=== PATIENT | female | born 2005 | race Caucasian/White ===

== ENCOUNTER 2024-08-06 14:22 | Emergency (ER) | payer OTHER, SELFPAY ==
[2024-08-06 14:25] VITALS: BP 144/93; PULSE 85; RESP 18; TEMP 36.9; O2SAT 100; BMI 26.7
--- NOTE | 2024-08-06 14:42 | ED_ITS ---
HPI - General Adult General Chief complaint: Recheck/Abnormal Lab/Rx Stated complaint: staple removal Time Seen by Provider: 08/06/24 14:40 Source: patient and family (mom) Mode of arrival: ambulatory Limitations: no limitations History of Present Illness ED Provider: CORBY HESTER PA-C HPI narrative: 18-year-old female presents to the ED today with her mother requesting removal of mat. Patient states that she was evaluated at [facility] just outside of [place] approximately 9 days ago for self-harm lacerations to her anterior right thigh. She had mat placed to 3 of these lacerations. She was not started on any antibiotics. She was advised to return to an emergency department for removal in 7-10 days. She admits to removing mat from 1 of the sites yesterday as they were irritating her. She has been applying Neosporin. Reports minimal redness around the staple sites. Unsure if this is just irritation. There is some crusting noted around laceration. Denies fever, chills. Related Data Previous Rx's ?Medication ?Instructions ?Recorded doxycycline monohydrate 100 mg 100 mg PO BID 7 days #14 caps 08/06/24 capsule Allergies Allergy/AdvReac Type Severity Reaction Status Date / Time No Known Allergies Allergy Verified 08/06/24 14:27 Review of Systems 2 Review of Systems: Yes all other systems are reviewed and are negative PMFSH Past Medical History Attestation statement: The following information was validated with the patient. Source: old records reviewed and nursing notes reviewed Social History Social History Advance Directives: Yes Advance Directives Information Provided: Yes Advance Directives on File: No Do you have a plan to hurt others: No Plan Physical Exam ED Vital Signs: Vital Signs - 24 hr 08/06/24 14:25 Temperature 98.5 F Pulse Rate 85 Respiratory Rate 18 Blood Pressure 144/93 H Pulse Oximetry 100 Oxygen Delivery Method Room Air BMI result Body Mass Index 26.7 hypertensive, afebrile General: Well appearing, in no acute distress. Skin: +See below Head: Normocephalic, atraumatic. EENT: Hearing is intact b/l. Conjunctiva clear. EOM intact. Neck: Supple without LAD Cardiac: Chest wall symmetric Lungs: Normal respiratory effort without accessory muscle use Ext: +see below. 11 cm linear laceration noted to lateral right thigh with [address]. Mild erythema at staple sites. Noted crusting to laceration. no evidence of dehiscence. another 5 cm linear laceration noted distal lateral right thigh with [address] mild erythema noted to staple sites. another 5 cm linear laceration, mat previously removed. no noted discharge. no warmth. No palpable fluctuance. Neuro: AOx3. Normal speech. Ambulating with steady gait. Psych: Appropriate mood and affect. Responds appropriately to questions. Course Course Course Narrative: A total of 16 mat removed from to lacerations. Lacerations appear to be irritated around staple sites. There is noted crusting to both lacerations. Will start patient on doxycycline for coverage. Patient is agreeable. I have no concern for abscess or dehiscence at this time. Her vitals are stable and she was afebrile. Well-appearing. Patient has remained stable throughout ED visit today. Discussed worrisome signs and symptoms and when to return to the ED. All questions answered at this time. Patient is agreeable with disposition and stable for discharge. Medical Decision Making Medical Decision Making MDM Narrative: 18-year-old female presents to the ED today with her mother requesting removal of mat. hypertensive, vitals are otherwise wnl. Please see exam portion for findings. Differential diagnosis includes self-harm, laceration, cellulitis, dehiscence Plan for staple removal and disposition. Differential Diagnosis Differential Diagnoses: The differential diagnosis associated with the presentation includes as above Admission/Observation not indicated Independent Historian Clinical information obtained from an independent historian. History obtained from or confirmed by: Parent Prescription Management I considered prescription management with: Antibiotic (doxycycline) Social Determinants Patient?s care significantly limited by Social Determinants of Health including: Other Social Determinant of Health Critical Care Time Critical Care Time Critical Care Time: No Discharge Plan Discharge Clinical Impression: Removal of mat, Cellulitis Patient Disposition: Home, Self-Care Instructions: Doxycycline (By mouth) Additional Instructions: You have been evaluated in the Emergency Department today for staple removal. Your mat were removed. Your laceration sites appear irritate and mildly infected. I am starting you on an oral antibiotic, doxycycline. Take this as prescribed for the next 7 days to prevent any further infection. On doxycycline, do not take pills immediately before going to bed and swallow pills with plenty of water. Avoid direct sunlight, iron, antacids, and Pepto Bismol. Call your provider if you develop new ringing in your ears, new problems hearing, dizziness, difficulty swallowing, rash, abdominal discomfort, nausea, or diarrhea. You can wash the area freely now. Pat to dry. Keep your wound out of the sunlight for six months to reduce the appearance of scarring. You should cover your scar or use high SPF sunscreen protection. Please follow up with your primary care provider at your next scheduled appointment. Return to the ER immediately signs of infection to your wounds such as worsening pain, worsening redness/swelling, discharge/pus from your wounds, or for any other concerning symptoms. Prescriptions: New doxycycline monohydrate 100 mg capsule 100 mg PO BID 7 Days Qty: 14 0RF Referrals: Physician,Unknown J [Primary Care Provider] - Discharge Date/Time: 08/06/24 15:01 Print Language: Armenian
--- OUTSIDE RECORDS SUMMARY | 2024-08-06 14:59 | XMS_ITS | Patient Health Record ---
Author Organization [facility], Address [address] [address] Care Team Providers Care Aadc Plans Staff Officer Name Role Phone Manju PINA, Agnes Primary Care Provider WES Nair Unavailable [phone] Reason For Referral No Information Social History Sex Assigned At : Social History Observation Description Sex Assigned At Female Problems Problem Type SNOMED Code ICD Code Onset Dates Problem Status W/U Status Risk Notes Problem 999633910 Anxiety disorder , unspecified (F41.9) Active confirmed Problem Allergic rhinitis caused by pollen (disorder) (95234682) Allergic rhinitis due to pollen (J30.1) Active confirmed Problem Seasonal allergic rhinitis (059066561) Other seasonal allergic rhinitis (J30.2) Active confirmed Problem Allergic contact dermatitis caused by chemical (081510701528939 03) Allergic contact dermatitis due to other chemical products (L23.5) Active confirmed Problem Anaphylactic reaction to food (63205647) Anaphylactic reaction due to fruits and vegetables, initial encounter (T78.04XA) Active confirmed Problem Food anaphylaxis (37260278) Anaphylactic reaction due to fruits and vegetables, subsequent encounter (T78.04XD) Active confirmed Problem Food anaphylaxis (13198486) Anaphylactic reaction due to other food products, initial encounter (T78.09XA) Active confirmed Problem Food anaphylaxis (83039577) Anaphylactic reaction due to other food products, subsequent encounter (T78.09XD) Active confirmed Problem Angioneurotic edema (16278988) Angioneurotic edema, initial encounter (T78.3XXA) Active confirmed Problem Angioneurotic edema (58580869) Angioneurotic edema, subsequent encounter (T78.3XXD) Active confirmed Problem 68204695 Adverse effect o f other drugs, medicaments and biological substances, initial encounter (T50.991Z) Active confirmed Problem 00831499 Depression, unspecified (F32.A) Active confirmed Problem 078632223 Autism (F84.0) Active confirmed Problem 407475124 Attention defici t hyperactivity disorder (ADHD), other type (F90.8) Active confirmed Problem 46904728 Dysautonomia (G90.1) Active confirmed Problem 382760852 H/O knee surgery (Z98.890) Active confirmed Problem 07558565 Hyperthyroidism (E05.90) Active confirmed Plan Of Treatment No Information Insurance Providers Payer Name Payer Address Payer Phone Subscriber Number Group Number Insured Name Patient Relationship to Insured Coverage Start Date Coverage End Date [facility] [address] [address] [place] [phone] [id number] Marie Goodman Self - patient is the insured
--- OUTSIDE RECORDS SUMMARY | 2024-08-06 14:59 | XMS_ITS | Encounter Summary ---
Author Organization [facility] Address [address] [id number] Care Team Providers Care Vice President Of Consulting Services Name Role Phone Agnes Montgomery MD Primary Care Provider [phone] Agnes Montgomery MD Unavailable [phone] Agnes Montgomery MD Primary Care Provider [phone] Encounter Details Date Type Department Care Team (Latest Contact Info) Description 02/13/2022 Lab [facility] Ordering Brianda Torres NP [address] [facility] [address] [place] [address] Dysuria Social History Tobacco Use Types Packs/Day Years Used Date Smoking Tobacco: Never Assessed Comments Unknown Sex and Gender Information Value Date Recorded Sex Assigned at Female 06/08/2022 7:30 PM EST Legal Sex Female 12:12 PM EST Gender Identity Female 06/09/2022 4:30 PM EST Sexual Orientation Not on file documented as of this encounter Plan of Treatment Not on file documented as of this encounter Procedures Procedure Name Priority Date/Time Associated Diagnosis Comments CULTURE, AEROBIC, URINE Routine 02/13/2022 11:46 AM EDT Dysuria documented in this encounter Results * Culture, Aerobic, Urine (02/13/2022 11:46 AM EDT) Culture <10,000 CFU/ml mixed urogenital theo, probable contamination GAVIN 02/14/2022 3:44 PM EDT [facility] Urine MID-STREAM URINE SPECIMEN / Unknown Collection / Unknown 02/13/2022 11:46 AM EDT 02/13/2022 9:03 PM EDT Brinada Torres RELATIONS [facility] MICROBIOLOGY - GENERAL ORDERABLE S Final Result [facility] [address] [place] [address], documented in this encounter Visit Diagnoses Diagnosis Dysuria documented in this encounter Care Teams Vice President Of Consulting Services Relationship Specialty Start Date End Date Agnes Montgomery MD PCP - General Pediatric Medicine 03/13/21 07/28/24 Agnes Montgomery MD PCP - Insurance Assigned PCP 02/13/22 Agnes Montgomery MD [address] [place] [address] PCP - General Pediatric Medicine 07/29/24 documented as of this encounter
--- OUTSIDE RECORDS SUMMARY | 2024-08-06 14:59 | XMS_ITS | Encounter Summary ---
Author Organization [facility] Address [address] [place] [address] Phone Care Team Providers Care Tug Boat Captain Name Role Phone Agnes Montgomery MD Primary Care Provider Agnes Montgomery MD Unavailable [phone] Agnes Montgomery MD Unavailable [phone] Agnes Montgomery MD Unavailable [phone] Jennifer Hill MD Unavailable [phone] Yesy Rahman MD Unavailable [phone] Encounter Details Date Type Department Care Team (Late st Contact Info) Description 02/03/2024 Orders Only [facility] [address] [place] [address] Justin Dennis, ART GLASS SETTER [address] [place] [address] Elevated blood pressure reading without diagnosis of hypertension (Primary Dx) Social History Tobacco Use Types Packs/Day Years Used Date Smoking Tobacco: Unknown Passive Smoke Exposure: Never Comments Unknown Sex and Gender Information Value Date Recorded Sex Assigned at Female 11/18/2023 2:52 PM EDT Legal Sex Female 12:58 AM EDT Gender Identity Not on file Sexual Orientation Not on file documented as of this encounter Plan of Treatment Upcoming Encounters Date Type Department Care Team (Late st Contact Info) Description 08/13/2024 3:00 PM EDT Appointment [facility] [address] [place] [phone] 08/25/2024 5:00 PM EDT Appointment [facility] [address] [place] [phone] Milind Ac MD [address] [place] [address] 09/09/2024 3:00 PM EDT [facility] [address] [place] [phone] Juan Barreto MD [address] [place] [phone] 05/24/2025 8:00 AM EST Telemedicine [facility] Genetics Metabolism [address] [place] [phone] Kanwal Laguerre CNP [address] [place] [address] Scheduled Orders Name Type Priority Associated Diagnoses Orde r Schedule Urine Culture Microbiology Add-On Elevated blood pressure reading without diagnosis of hypertension Expected: 02/03/2024 (Approximate), Expires: 02/02/2025 documented as of this encounter Visit Diagnoses Diagnosis Elevated blood pressure reading without diagnosis of hypertension- Primary documented in this encounter Care Teams Tug Boat Captain Relationship Specialty Start Date End Date Agnes Montgomery MD [address] [place] [address] PCP - General 08/27/23 Agnes Montgomery MD [address] [place] [address] PCP - Insurance Identified PCP 09/05/23 Agnes Montgomery MD [address] [place] [id number] PCP - Insurance PCP 08/21/17 Agnes Montgomery MD [address] [place] [id number] PCP - Clinical PCP 01/08/17 Jennifer Hill MD [address] [place] [address] HC Internal Audit Director 09/20/23 05/06/24 Yesy Rahman MD [address] [place] [phone] Consulting Physician Pediatric Cardiology 05/07/24 documented as of this encounter
--- OUTSIDE RECORDS SUMMARY | 2024-08-06 14:59 | XMS_ITS | Encounter Summary ---
Author Organization [facility] Address [address] [facility] [address] [place] [phone] Phone Care Team Providers Care Field Sampling Technician Name Role Phone Agnes Montgomery MD Primary Care Provi chelsey Encounter Details Date Type Department Care Team (Late st Contact Info) Description 12/11/2021 Procedure Pass [facility] [address] ENDO DEPT [address] [place] [address] Social History Tobacco Use Types Packs/Day Years Used Date Smoking Tobacco: Never Smokeless Tobacco: Never Alcohol Use Standard Drinks/Week Comments Never 0 (1 standard drink = 0.6 oz pur e alcohol) Sex and Gender Information Value Date Recorded Sex Assigned at Female 04/16/2021 2:14 PM EST Gender Identity Non-binary 04/16/2021 2:14 PM EST Sexual Orientation Lesbian or [place] 04/16/2021 2: 14 PM EST documented as of this encounter Plan of Treatment Upcoming Encounters Date Type Department Care Team (Late st Contact Info) Description 09/09/2024 1:00 PM EDT Office Visit [facility] [address] [place] [address] Sheila Arana, JULIA [address] [place] [address] 09/27/2024 8:30 AM EDT Office Visit [facility] [address] [place] [address] Letha Livingston MD [address] [place] [address] [email or web address] 04/11/2025 1:15 PM EST Office Visit [facility] [place] [address] [place] [address] Cass Alberts OD [address] [place] [address] documented as of this encounter Visit Diagnoses Not on filedocumented in this encounter Care Teams Field Sampling Technician Relationship Specialty Start Date End Date Agnes Montgomery MD [address] [facility] [address] [place] [address] PCP - General Pediatrics 12/31/16 documented as of this encounter Additional Source Comments The information contained in this document represents components of the legal health record. It is not the complete legal health record.[facility]
--- OUTSIDE RECORDS SUMMARY | 2024-08-06 14:59 | XMS_ITS | Clinical Summary ---
Author Organization [facility] Address [address] [place] [address] Care Team Providers Care Hand Grinder Name Role Phone Agnes Montgomery MD Unavailable [phone] Agnes Montgomery MD Primary Care Provider [phone] Allergies Active Allergy Reactions Criticality Noted Date Comments Hydromorphone Anxiety Low 06/08/2022 Oxycodone Rash Low 06/08/2022 Scopolamine Unknown 06/08/2022 Blurry vision Medications No known medications Active Problems Problem Noted Date Diagnosed Date Paresthesias 06/10/2022 Encounters Date Type Department Care Team Description 07/29/2024 12:59 AM EDT - 07/29/2024 6:23 AM EDT Emergency [facility] [address] [place] [phone] lEy Mancilla MD Deliberate self-cutting (Primary Dx); Laceration of right thigh, initial encounter Discharge Disposition: Home or Self Care from Last 3 Months Social History Tobacco Use Types Packs/Day Years Used Date Smoking Tobacco: Never Assessed Comments No Sex and Gender Information Value Date Recorded Sex Assigned at Female 06/08/2022 7:30 PM EST Legal Sex Female 12:12 PM EST Gender Identity Female 06/09/2022 4:30 PM EST Sexual Orientation Not on file Last Filed Vital Signs Vital Sign Reading Time Taken Comments Blood Pressure 137/70 07/29/2024 6:21 AM EDT Pulse 86 07/29/2024 6:21 AM EDT Temperature 36.7 ??C (98 ??F) 07/29/2024 6:21 AM EDT Respiratory Rate 16 07/29/2024 6:21 AM EDT Oxygen Saturation 98% 07/29/2024 6:21 AM EDT Inhaled Oxygen Concentration - - Weight 65.8 kg (145 lb) 07/29/2024 12:47 AM EDT Height 160 cm (5' 3 ) 07/29/2024 12:47 AM EDT Body Mass Index 25.69 07/29/2024 12:47 AM EDT Plan of Treatment Health Maintenance Due Date Last Done Comments Depression Screening 2008 Chlamydia and Gonorrhea Screening 09/03/2019 Hepatitis C Screening 2022 COVID-19 Vaccine ( season) 2023 04/18/2021, 09/25/2020, 09/04/2020 Influenza Vaccine (Season Ended) 2024 02/13/2022, 12/30/2019, 01/12/2019, Additional history exists Blood Pressure 07/29/2028 07/29/2024 DTaP,Tdap,and Td Vaccines (7 - Td or Tdap) 10/25/2033 10/26/2023, 11/02/2015, 08/24/2008, Additional history exists Pneumococcal Vaccine: Pediatrics (0 to 5 Years) and At-Risk Patients (6 to 64 Years) Aged Out 09/06/2005, 03/05/2005, 01/03/2005, Additional history exists No longer eligible based on patient's age to complete this topic Meningococcal Vaccines Completed , 08/29/2017, 11/02/2015 Procedures Procedure Name Priority Date/Time Associated Diagnosis Comments [place] SIMPLE RPR SCALP/NECK/AX/GENIT/T RUNK 7.6-12.5CM Routine 07/29/2024 6:10 AM EDT CBC AND DIFFERENTIAL STAT 07/29/2024 1:08 AM EDT CBC AND DIFFERENTIAL STAT 07/29/2024 1:08 AM EDT , URINE STAT 07/29/2024 1:08 AM EDT TOXICOLOGY SCREEN, BLOOD STAT 07/29/2024 1:08 AM EDT DRUG SCREEN, URINE STAT 07/29/2024 1: 08 AM EDT BASIC METABOLIC PANEL STAT 07/29/2024 1:08 AM EDT from Last 3 Months Results * [place] SIMPLE RPR SCALP/NECK/AX/GENIT/TRUNK 7.6-12.5CM (07/29/2024 6:10 AM EDT) Narrative Ely Mancilla MD - 07/29/2024 6:10 AM EDT Ely Mancilla MD ? 07/29/2024 ??6:13 AM Lac Repair Date/Time: 07/29/2024 6:10 AM Performed by: Ely Mancilla MD Authorized by: Ely Mancilla MD ?? Consent: ??Consent obtained: ??Verbal ??Consent given by: ??Patient Indications: ??laceration Anesthesia: ??Anesthesia method: ??Topical application and local infiltration ??Topical anesthetic: ??LET ??Local anesthetic: ??Lidocaine 1% WITH epi Laceration details: ??Location: ??Leg ??Leg location: ??R upper leg ??Length (cm): ??12 Pre-procedure details: ??Preparation: ??Patient was prepped and draped in usual sterile fashion Exploration: ??Wound exploration: entire depth of wound visualized ?Contaminated: no ?? Treatment: ??Area cleansed with: ??Saline ??Amount of cleaning: ??Standard ??Irrigation solution: ??Sterile saline ??Debridement: ??None ??Undermining: ??None ??Scar revision: no ?? Skin repair: ??Repair method: ??[place] ??Number of mat: ??10 (and 5 and 5 in 2 smaller lacerations) Approximation: ??Approximation: ??Close Repair type: ??Repair type: ??Simple Post-procedure details: ??Dressing: ??Antibiotic ointment ??Assessment: improvement ??Procedure completion: ??Tolerated well, no immediate complications us Ely Mancilla MD PROCEDURE/MINOR SURGICAL ORDER ERVIN Final Result * (ABNORMAL) CBC and Differential (07/29/2024 1:08 AM EDT) [facility] WBC 12.52(H) 4.00 - 11.00 K/uL 07/29/2024 1:34 AM [facility] RBC 5.12(H) 4.10 - 5.10 M/uL 07/29/2024 1:34 AM [facility] Hemoglobin 14.0 12.0 - 15.3 g/dL 07/29/2024 1:34 AM [facility] Hematocrit 42.6 36.0 - 45.0 % 07/29/2024 1:34 AM [facility] MCV 83 80 - 96 fL 07/29/2024 1:34 AM [facility] RDW 13.7 11.6 - 14.6 % 07/29/2024 1:34 AM [facility] Platelet Count 435 150 - 450 K/uL 07/29/2024 1:34 AM [facility] Neutrophil 54.9 % 07/29/2024 1:34 AM [facility] Lymphocyte 35.1 % 07/29/2024 1:34 AM [facility] Monocyte 6.9 % 07/29/2024 1:34 AM [facility] Eosinophil 2.1 % 07/29/2024 1:34 AM [facility] Basophil 0.7 % 07/29/2024 1:34 AM [facility] Immature Granulocyte (Charlotte, Myelo, Promyelocyte) 0.3 % 07/29/2024 1:34 AM [facility] Absolute Neutrophil Count 6.87 1.50 - 7.70 K/uL 07/29/2024 1:34 AM [facility] Absolute Immature Granulocyte (Charlotte, Myelo, Promyelocyte) 0.04 0.00 - 0.09 K/uL 07/29/2024 1:34 AM [facility] Absolute Lymphocyte Count 4.40(H) 1.20 - 3.50 K/uL 07/29/2024 1:34 AM [facility] Absolute Monocyte Count 0.86 0.00 - 1.00 K/uL 07/29/2024 1:34 AM [facility] Absolute Eosinophil Count 0.26 0.00 - 0.40 K/uL 07/29/2024 1:34 AM EDT [facility] Absolute Basophil Count 0.09 0.00 - 0.20 K/uL 07/29/2024 1:34 AM EDT [facility] Differential Performed Auto Diff Reported 07/29/2024 1:34 AM EDT [facility] Blood PERIPHERAL BLOOD SPECIMEN / Unknown 07/29/2024 1:08 AM EDT 07/29/2024 1:25 AM EDT Ely Mancilla MD LAB BLOOD ORDERABLES Final Res ult [address] [address] * Plasma Toxicology Screen (07/29/2024 1:08 AM EDT) Pathologist [facility] Alcohol <10 <10 mg/dL 07/29/2024 2:08 AM EDT [facility] Acetaminophen Result,Blood 4 <=30 ug/mL 07/29/2024 2:08 AM EDT [facility] Salicylate Level, Blood <5 <30 mg/dL 07/29/2024 2:08 AM EDT [facility] Benzodiazepines Screen,Blood Negative Negative 07/29/2024 2:08 AM EDT [facility] Comment: Benzodiazepines cutoff is 50 ng/mL diazepam. Results should be used for medical purposes only and not for any legal or employment evaluative purposes. Tricyclics Screen Negative Negative 2:08 AM EDT [facility] Comment: Tyicyclics cutoff is 300 ng/mL Nortriptyline. Results should be used for medical purposes only and not for any legal or employment evaluative purposes. Blood PERIPHERAL BLOOD SPECIMEN / Unknown 07/29/2024 1:08 AM EDT 07/29/2024 1:25 AM EDT Ely Mancilla MD LAB BLOOD ORDERABLES Final Res ult Performing Organization Address City/[facility]/ZIP Co de Phone Number [address] [address] * Drug Screen, Urine (07/29/2024 1:08 AM EDT) 6-Aceytlmorphine Screen, Urine Negative Negative 07/29/2024 3:17 AM [facility] Comment:Add on order [id number] Opiates and Oxycodone, Urine, Confirmation, if confirmation desired. Amphetamines Screen, Urine Negative Negative 07/29/2024 3:17 AM [facility] Comment: Screen for Amphetamine, Metamphetamine or other Amphetamine-like compounds. Add-on order [id number] Amphetamine, Urine, Confirmation if confirmation desired. Barbiturates Screen, Urine Negative Negative 07/29/2024 3:17 AM T [facility] Comment:Add-on order [id number] Barbiturate, Urine, Confirmation if confirmation desired. Benzodiazepine Screen, Urine Negative Negative 07/29/2024 3:17 AM [facility] Comment: Add-on order [id number] Benzodiazepine, Urine, Confirmation if confirmation desired. Buprenorphine Screen, Urine Negative Negative 07/29/2024 3:17 AM [facility] Comment:Add-on order [id number] Buprenorphine, Urine, Confirmation if confirmation desired. Cannabinoids Screen, Urine Negative Negative 07/29/2024 3:17 AM [facility] Comment:Add-on order [id number] Cannabinoids, Urine, if confirmation desired. Cocaine Metabolite Screen, Urine Negative Negative 07/29/2024 3:17 AM [facility] Comment:Add-on order [id number] Cocaine, Urine, Confirmation if confirmation desired. Ethanol Screen, Urine Negative Negative 07/29/2024 3:17 AM [facility] Fentanyl Screen, Urine Negative Negative 07/29/2024 3:17 AM [facility] Comment:Add-on order [id number] Fentanyl Confirmation, Urine, if confirmation desired. Methadone Screen, Urine Negative Negative 07/29/2024 3:17 AM [facility] Comment:Add order [id number] Me thadone, Urine, Confirmation if confirmation desired. Opiates Screen, Urine Negative Negative 07/29/2024 3:17 AM [facility] Comment: Screen for Morphine, Codeine, Hyrdocodone, Hydromorphone, or other Morphine- related opiates. Add on order [id number] Opiates and Oxycodone, Urine, Confirmation if confirmation desired. Oxycodone Screen, Urine Negative Negative 07/29/2024 3:17 AM EDT [facility] Comment:Add-on order [id number] Opiates and Oxycodone, Urine, Confirmation if confirmation desired. Tramadol Screen, Urine Negative Negative 07/29/2024 3:17 AM EDT [facility] Comment:Add-on order [id number] Tramadol Confirmation, Urine, if confirmation desired. Creatinine, Jalen Urine 480.4 >=15 mg/dL 07/29/2024 3:17 AM T [facility] Urine URINE SPECIMEN / Unknown 07/29/2024 1:08 AM EDT 07/29/2024 1:26 AM EDT Narrative [facility] - 07/29/2024 3:17 AM EDT These tests are for screening purposes only and should only be used for medical purposes. ??The cutoff concentrations for determining a positive result are as follows: 6-Acetylmorphine ?10 ng/mL 6-acetylmorphine Amphetamines ?1000 ng/mL d-methamphetamine Barbiturates ? 200 ng/mL secobarbital Benzodiazepines ?200 ng/mL oxazepam Buprenorphine ?5 ng/mL buprenorphine Cannabinoids ?50 ng/mL 95-ams-emqbm 5-EIK-2-carboxylic acid Cocaine ?300 ng/mL benzoylecgonine Ethanol ? 20 mg/dL ethanol Fentanyl ? 1 ng/mL fentanyl Methadone ?300 ng/mL methadone Opiates ?300 ng/mL morphine Oxycodone ?100 ng/mL oxycodone Tramadol ? 200 ng/mL tramadol False negative and false positive results may occur due to cross-reactivity, patient medications or sample adulteration. ??If the validity of these results is uncertain, confirmatory testing can be done upon specific request. us Ely Mancilla MD URINE ORDERABLES Final Result [address] [address] * (HCG), Urine (07/29/2024 1:08 AM EDT) Pathologist [facility] HCG, Urine Random Negative Negative 07/29/2024 1:34 AM EDT [facility] Urine URINE SPECIMEN / Unknown 07/29/2024 1:08 AM EDT 07/29/2024 1:26 AM EDT us Ely Mancilla MD URINE ORDERABLES Final Result Performing Organization Address City/State/[facility] Co de Phone Number [address] [address] * (ABNORMAL) Basic Metabolic Panel (07/29/2024 1:08 AM EDT) [facility] Sodium 138 135 - 146 mmol/L [address] 07/29/2024 2:00 AM [facility] Potassium 3.5 3.4 - 5.2 mmol/L [address] 07/29/2024 2:00 AM [facility] Comment:Plasma sample Chloride 107 98 - 110 mmol/L [address] 07/29/2024 2:00 AM [facility] Total CO2/Bicarbonate 16(L) 24 - 32 mmol/L [address] 07/29/2024 2:00 AM [facility] Anion Gap 15 2 - 15 mmol/L [address] 07/29/2024 2:00 AM [facility] BUN 9 7 - 24 mg/dL [address] 07/29/2024 2:00 AM [facility] Creatinine, Blood 0.83 0.50 - 1.10 mg/dL [address] 07/29/2024 2:00 AM [facility] Glucose, Blood 109 70 - 118 mg/dL [address] 07/29/2024 2:00 AM [facility] Calcium 9.5 8.5 - 10.5 mg/dL [address] 07/29/2024 2:00 AM [facility] Estimated GFR(CKD-EPI) 102 >=60 mL/min/BS A REDDY [id number] 07/29/2024 2:00 AM EDT [facility] Comment:This Cr-based equati on underestimates GFR in patients with increased muscle mass. Order CYSTATIN C WITH GFR ESTIMATE, [id number], if additional evaluation of renal function is needed. Blood PERIPHERAL BLOOD SPECIMEN / Unknown 07/29/2024 1:08 AM EDT 07/29/2024 1:25 AM EDT us Ely Mancilla MD LAB BLOOD ORDERABLES Final Res ult [facility] [address] [place] [address] from Last 3 Months Insurance [employer] [facility] (O) Address: [facility] [address] [place] [address] Care Teams Hand Grinder Relationship Specialty Start Date End Date Agnes Montgomery MD PCP - Insurance Assigned PCP 02/13/22 Agnes Montgomery MD [address] [facility] [address] [place] [address] PCP - General Pediatric Medicine 07/29/24
--- OUTSIDE RECORDS SUMMARY | 2024-08-06 14:59 | XMS_ITS | Encounter Summary ---
Author Organization [facility] Address [address] [place] [address] Phone Care Team Providers Care Sat Tutor Name Role Phone Agnes Montgomery MD Primary Care Provider [phone] Agnes Montgomery MD Unavailable [phone] Agnes Montgomery MD Unavailable [phone] Agnes Montgomery MD Unavailable [phone] Yesy Rahman MD Unavailable [phone] Encounter Details Date Type Department Care Team (Late st Contact Info) Description 07/13/2024 Results Follow-Up [facility] [address] [place] [phone] Justin Dennis, SOLE BUFFER [address] [place] [address] Social History Tobacco Use Types Packs/Day Years [...] Encounters Date Type Department Care Team (Late Contact Info) Description 08/13/2024 3:00 PM EDT Appointment [facility] [address] [place] [phone] 08/25/2024 5:00 PM EDT Appointment [facility] [address] [place] [phone] Milind Ac MD [address] [place] [address] 09/09/2024 3:00 PM EDT Consult [facility] [address] [place] [phone] Juan Barreto MD [address] [place] [phone] 05/24/2025 8:00 AM EST Telemedicine [facility] [address] [place] [phone] Kanwal Laguerre CNP [address] [place] [phone] documented as of this encounter Visit Diagnoses Not on filedocumented in this encounter Care Teams Sat Tutor Relationship Specialty Start Date End Date Agnes Montgomery MD [address] [place] [address] PCP - General 08/27/23 Agnes Montgomery MD [address] [place] [address] PCP - Insurance Identified PCP 09/05/23 Agnes Montgomery MD [address] [place], [place] [id number] PCP - Insurance PCP 08/21/17 Agnes Montgomery MD [address] [place] [address] PCP - Clinical PCP 01/08/17 Yesy Rahman MD [address] [place] [address] Consulting Physician Pediatric Cardiology 05/07/24 documented as of this encounter
--- OUTSIDE RECORDS SUMMARY | 2024-08-06 14:59 | XMS_ITS | Encounter Summary ---
Author Organization [facility] Address [address] [facility] [address] [place] [phone] Phone Care Team Providers Care Blowing Weasand Name Role Phone Agnes [place] MD Primary Care Provi chelsey Reason for Referral * Consultation (Routine) - Closed Specialty Diagnoses / Procedures Referred By Seamus gu Referred To Contact Pediatric Rheumatology Diagnoses Arthralgia, unspecified joint Agnes Montgomery MD [address] [address] Samia Minaya MD [address] [place] [phone] Email: [email or web address] Referral ID Status Reason Start Date Expiration Date Visits Re quested Visits Authorized [id number] Closed 09/05/2017 04/20/2018 6 6 Encounter Details Date Type Department Care Team (Latest Contact Info) Description 08/25/2017 Transcribe Orders [facility] [address] [place] [address] Agnes Montgomery MD [address] [address] Arthralgia, unspecified joint (Primary Dx) Social History Tobacco Use Types Packs/Day Years Used Date Smoking Tobacco: Never Assessed Sex and Gender Information Value Date Recorded Sex Assigned at Female 04/16/2021 2:14 PM EST Gender Identity Non-binary 04/16/2021 2:14 PM EST Sexual Orientation Lesbian or [place] 04/16/2021 2: 14 PM EST documented as of this encounter Plan of Treatment Upcoming Encounters Date Type Department Care Team ([facility] st Contact Info) Description 09/09/2024 1:00 PM EDT Office Visit [facility] [address] [place] [address] Sheila Arana, OD [address] [place] [address] 09/27/2024 8:30 AM EDT Office Visit [facility] [address] [place] [address] Letha Livingston MD [address] [place] [address] [email or web address] 04/11/2025 1:15 PM EST Office Visit [facility] [address] [place] [address] Cass Alberts, OD [address] [place] [address] Scheduled Referrals Name Type Priority Associated Diagnoses Orde r Schedule Ambulatory referral to [facility] Pediatric Rheumatology Outpatient Referral Routine Arthralgia, unspecified joint Ordered: 08/25/2017 documented as of this encounter Visit Diagnoses Diagnosis Arthralgia, unspecified joint- Primary documented in this encounter Care Teams Blowing Weasand Relationship Specialty Start Date End Date Agnes Montgomery MD 57 [facility] [address] [place] [address] PCP - General Pediatrics 12/31/16 documented as of this encounter Additional Source Comments The information contained in this document represents components of the legal health record. It is not the complete legal health record.[facility]
--- OUTSIDE RECORDS SUMMARY | 2024-08-06 14:59 | XMS_ITS | Encounter Summary ---
Author Organization [facility] Address [address] [place] [address] Phone Care Team Providers Care Interstate Planner Name Role Phone Agnes [place] MD Primary Care Provider [phone] Reason for Visit * Reason Comments ED Admission Encounter Details Date Type Department Care Team ([facility] st Contact Info) Description 08/06/2024 2:22 PM EDT - Present Hospital Encounter [facility] - Patient Ping Social History Tobacco Use Types Packs/Day Years Used Date Smoking Tobacco: Never Smokeless Tobacco: Never Alcohol Use Standard Drinks/Week Comments Never 0 (1 standard drink = 0.6 oz pur e alcohol) Hunger/Food Answer Date Recorded In the last 12 months, did y ou or your family ever eat less than you felt you should because there wasn't enough money for food? No 11/27/2023 Stable Housing Answer Date Recorded Are you worried that in the next 2 months you may not have stable housing? No 11/27/2023 Transportation Concerns Answer Date Rec orded In the last 12 months, have you or your family ever had to go without healthcare because you didn't have a way to get there? No 11/27/2023 Hazards in Home Answer Date Recorded Think about the place you li ve. Do you have problems with any of the following? Pests (mice or roaches), mold, no/not working smoke detectors, water leaks, no window guards. No 2023 Financing Utilities Answer Date Recorde d In the last 12 months, has t he electric, gas, oil, or water company threatened to shut off your services in your home? No 11/27/2023 Safety at Home Answer Date Recorded Are you or your family worried about feeling saf e in your home? No 11/27/2023 Outside Support Answer Date Recorded Do you feel that you need mo re support from other people or programs to help you care for yourself or your family? No 11/27/2023 Understanding Health Concerns Answer Da te Recorded Do you need help understandi ng your or your child's healthcare needs (diagnosis, medications, plan, etc.)? No 11/27/2023 Financing Health Concerns Answer Date R ecorded In the last 12 months, was t here a time when your child needed to see a doctor or get medications or supplies but could not because of cost? No 11/27/2023 Missing School or Work Answer Date Pan rded Did you or your child miss s chool or work because of a health problem that could have been avoided? No 11/27/2023 Child Education Answer Date Recorded Do you have concerns about y our/your child's learning or behavior in school, preschool, or daycare? No 11/27/2023 Comments Unknown Sex and Gender Information Value Date Recorded Sex Assigned at Female 11/24/2020 2:45 PM EDT Legal Sex Female 8:34 AM EDT Gender Identity Gender nonconforming/non-binary 07/18/2022 11:30 AM EDT Sexual Orientation Another orientation 3:55 PM EDT documented as of this encounter Plan of Treatment Not on file documented as of this encounter Visit Diagnoses Not on filedocumented in this encounter Care Teams Interstate Planner Relationship Specialty Start Date End Date Agnes Montgomery MD 57 [facility] [address] [place] [address] PCP - General Pediatrics 07/11/17 Nancie Quach 57 [facility]. Health Outcomes Liaison/[facility] 09/03/17 documented as of this encounter
--- OUTSIDE RECORDS SUMMARY | 2024-08-06 14:59 | XMS_ITS | Clinical Summary ---
Author Organization [facility] Address [address] [address] Phone Care Team Providers Care Diesel Automotive Technician Name Role Phone Agnes Montgomery MD Primary Care Provi chelsey Allergies Active Allergy Reactions Criticality Noted Date Comments Hydromorphone Palpitations Low 06/19/2022 Oxycodone Nausea and/or Vomiting High 12/11/2021 Medications Medication Sig Dispensed Refills Start Date End Date Status levalbuterol (XOPENEX HFA) 45 mcg/actuation inhaler Inhale 1-2 puffs into the lungs every 4 (four) hours as needed for wheezing. Active polyethylene glycol (MIRALAX) 17 gram/dose powder Take 17 g by mouth daily as needed. Mix in 6-8 oz drink 507 g 6 04/16/2021 Active norethindrone acetate (AYGESTIN ORAL) Take 7.5 mg by mouth daily. Active meloxicam (MOBIC) 15 MG tablet Take 15 mg by mouth daily as needed. Active lamoTRIgine (LAMICTAL) 25 MG IMMEDIATE release tablet Take 2 tablets (50 mg total) by mouth every evening. 180 tablet 1 07/10/2023 Active busPIRone (BUSPAR) 7.5 MG tabletIndications:A nxiety Take 1 tablet (7.5 mg total) by mouth 2 (two) times a day. 180 tablet 1 07/10/2023 Active lamoTRIgine (LAMICTAL) 100 MG IMMEDIATE release tabletIndications:I rritability Take 1 tablet (100 mg total) by mouth every morning. 180 tablet 1 07/10/2023 Active Ca cit-D3-mag#11-zinc- nsdd-uzr-rve (CALTRATE 600+D) 600 mg calcium- 800 unit-50 mg Tab Take 2 tablets by mouth daily. Active cloNIDine HCL (KAPVAY ER) 0.1 mg Tb12 TAKE ONE TABLET BY MOUTH EVERY DAY IN THE MORNING. 90 tablet 11/28/2023 Active flecainide (TAMBOCOR) 100 MG tablet Take 100 mg by mouth every 12 (twelve) hours. 11/18/2023 01/27/2025 Active busPIRone (BUSPAR) 10 MG tablet Take 10 mg by mouth 2 (two) times a day. Active melatonin 3 mg Tab Take 3 mg by mouth nightly at bedtime. Active methylphenidate HCl 27 MG ER tablet Take 27 mg by mouth every morning. Active Active Problems Patient Care Coordination No te Formatting of this note migh t be different from the original. Preferred name: Ector Pronouns: They/Them School ([id number]): [employer] in [place], [place]. Problem Noted Date Diagnosed Date PVC's (premature ventricular contractions) 04/26 Myopia of both eyes with regular astigmatism Vitreous floaters of both eyes 08/30/2022 Depressive disorder 02/15/2020 Assessment & Plan (03/13/2022 3:07 PM EST): -Stable -Continue current management Assessment & Plan (10/10/2021 3:43 PM EDT): -Improved -Continue current management Assessment & Plan (04/07/2020 5:01 PM EST): -Improving -Agree with Marie attending a therapeutic program Assessment & Plan (02/15/2020 1:56 PM EDT): -Discussed treatment options -Start Lexapro 2.5 mg for 1 week then increase to 5 mg -Reviewed the risks benefits and side effects including activation, mood changes, serotonin syndrome and the black box warning -Family will call with an update in 2 weeks or sooner if concerns arise -Developed a safety plan, including mobile crisis, her therapist, and the [facility] wagon drill operator Weight loss 01/05/2018 GERD (gastroesophageal reflux disease) 8 Irritability 01/07/2017 Assessment & Plan (03/13/2022 3:06 PM EST): -Stable -Continue current management Assessment & Plan (12/21/2021 12:20 PM EDT): -Stable -Continue current management Assessment & Plan (10/10/2021 3:43 PM EDT): -Improved -Continue current management Assessment & Plan (12/24/2019 5:03 PM EDT): -Stable -Continue current management Assessment & Plan (09/28/2019 4:57 PM EDT): -Stable -Continue current management Assessment & Plan (06/22/2019 3:05 PM EST): -Stable -Continue current management Assessment & Plan (03/23/2019 3:07 PM EST): -Stable -Continue current management Assessment & Plan (12/22/2018 3:40 PM EDT): -Stable -Continue current management Assessment & Plan (09/25/2018 4:10 PM EDT): -Stable -Continue current management Assessment & Plan (06/23/2018 4:36 PM EST): -Stable -Continue current management Assessment & Plan (04/06/2018 10:00 AM EST): -Not significantly increased -Continue current management Assessment & Plan (01/14/2018 2:56 PM EDT): -Stable -Continue current management Assessment & Plan (10/13/2017 3:11 PM EDT): -Stable -Continue current management Assessment & Plan (07/03/2017 3:36 PM EDT): -Stable -Continue current management Assessment & Plan (04/09/2017 3:51 PM EST): -Stable -Continue current management Assessment & Plan (01/07/2017 2:56 PM EDT): -Stable -Continue Lamictal 100 mg twice a day. -She would benefit from individual therapy. Attention deficit hyperactivity disorder (ADHD) 01/07/2017 Assessment & Plan (03/13/2022 3:06 PM EST): -Stable -Continue current management Assessment & Plan (12/21/2021 12:20 PM EDT): -Stable -Continue current management Assessment & Plan (10/10/2021 3:43 PM EDT): -Stable -Continue current management Assessment & Plan (04/07/2020 5:00 PM EST): -Stable -Continue current management Assessment & Plan (02/15/2020 1:59 PM EDT): -Stable -Continue current management Assessment & Plan (12/24/2019 5:02 PM EDT): -Stable -Continue current management Assessment & Plan (09/28/2019 4:56 PM EDT): -Stable -Continue current management Assessment & Plan (06/22/2019 3:05 PM EST): -Stable -Continue current management Assessment & Plan (03/23/2019 3:08 PM EST): -Stable -Continue current management Assessment & Plan (12/22/2018 3:39 PM EDT): -Stable -Continue current management Assessment & Plan (09/25/2018 4:10 PM EDT): -Stable -Continue current management Assessment & Plan (06/23/2018 4:36 PM EST): -Stable -Continue current management Assessment & Plan (04/06/2018 10:00 AM EST): -Stable -Continue current management Assessment & Plan (01/14/2018 2:57 PM EDT): -Stable -Continue current management Assessment & Plan (10/13/2017 3:11 PM EDT): -Stable -Continue current management Assessment & Plan (07/03/2017 3:36 PM EDT): -Improved -Continue current management Assessment & Plan (04/09/2017 3:51 PM EST): -Improved -Continue current management Assessment & Plan (01/07/2017 3:13 PM EDT): -Concerta has been less effective in controlling symptoms. -Increase Concerta to 54 mg -We reviewed risks, benefits, and side effects including decreased appetite, sleep disruption, mood changes, irritability, and activation. -Family will call with an update in a few weeks or sooner if concerns. -We will reassess if the additional 5 mg of the mph IR is needed in the future. Autism spectrum disorder 01/07/2017 Assessment & Plan (03/13/2022 3:07 PM EST): -Making progress -Continue current management Assessment & Plan (12/21/2021 12:20 PM EDT): -Making progress -Continue current management Assessment & Plan (10/10/2021 3:43 PM EDT): -Making progress -Continue current management Assessment & Plan (04/07/2020 5:00 PM EST): -Stable -Continue current management Assessment & Plan (02/15/2020 1:59 PM EDT): -Stable -Continue current management Assessment & Plan (12/24/2019 5:02 PM EDT): -Stable -Continue current management Assessment & Plan (09/28/2019 4:56 PM EDT): -Stable -Continue current management Assessment & Plan (06/22/2019 3:06 PM EST): -Stable -Continue current management Assessment & Plan (03/23/2019 3:08 PM EST): -Stable -Continue current management Assessment & Plan (12/22/2018 3:40 PM EDT): -Stable -Continue current management Assessment & Plan (09/25/2018 4:10 PM EDT): -Stable -Continue current management Assessment & Plan (06/23/2018 4:36 PM EST): -Making progress -Continue current management Assessment & Plan (04/06/2018 3:38 PM EST): -Making progress -Continue current management Assessment & Plan (01/14/2018 2:56 PM EDT): -Stable -Continue current management Assessment & Plan (10/13/2017 3:10 PM EDT): -Stable -Continue current management Assessment & Plan (07/03/2017 4:35 PM EDT): -Making progress -Continue current management Assessment & Plan (04/09/2017 3:51 PM EST): -Making progress -Continue current management Assessment & Plan (01/07/2017 3:26 PM EDT): -Contact information provided for Norah Araya in family support -Agree that she would be a great fit for the [employer] program -Continue to work with an educational administration teacher. Anxiety 01/07/2017 Assessment & Plan (03/13/2022 3:07 PM EST): -Stable -Continue current management Assessment & Plan (12/21/2021 12:21 PM EDT): -Stable -Continue current management -As needed Atarax updated to 25 mg once daily as needed Assessment & Plan (10/10/2021 3:43 PM EDT): -Stable -Continue current management Assessment & Plan (04/07/2020 5:03 PM EST): -Improved -Continue current management -Discussed as needed medication for flying. -Ativan 0.5 mg as needed 30 minutes prior to flying. Discussed risks including but not limited to a paradoxical reaction. Assessment & Plan (02/15/2020 1:59 PM EDT): -See plan for depression -Continue Atarax PRN -Discussed alternative strategies to self injurious behavior Assessment & Plan (12/24/2019 5:50 PM EDT): -Increase BuSpar to 10 mg in the AM and 7.5 mg in the PM for 1 week then increase to 10 mg BID -Parent aware to monitor for side effects -Family will call with an update in a few weeks or sooner if concerns arise -Will continue to follow sleep concerns Assessment & Plan (09/28/2019 4:57 PM EDT): -Stable -Continue current management Assessment & Plan (06/22/2019 3:06 PM EST): -Stable -Continue current management Assessment & Plan (03/23/2019 3:09 PM EST): -Stable -Continue current management Assessment & Plan (12/22/2018 3:40 PM EDT): -Stable -Continue current management Assessment & Plan (09/25/2018 4:09 PM EDT): -Stable -Continue current management Assessment & Plan (06/23/2018 4:35 PM EST): -Stable -Continue current management Assessment & Plan (04/06/2018 10:00 AM EST): -Improved -Continue current management Assessment & Plan (01/14/2018 2:50 PM EDT): -Increased -Titrate BuSpar to 7.5 mg BID -Parent aware to monitor for side effects -Family will call with an update in a few weeks or sooner if concerns arise Assessment & Plan (10/13/2017 3:10 PM EDT): -Stable -Continue current management Assessment & Plan (07/03/2017 3:36 PM EDT): -Improved -Continue current management Assessment & Plan (04/09/2017 3:51 PM EST): -Start BuSpar 2.5 mg once daily for 1 week, then 2.5 mg twice a day for 1 week, then 5 mg in the AM and 2.5 mg PM in the afternoon x 1 week, then 5 mg twice a day -Call with an update once on 5 mg twice a day for 2 weeks. -Reviewed the risks, benefits, and side effects including dizziness, sedation, GI symptoms, activation, mood changes, serotonin syndrome. -Continue therapy Assessment & Plan (01/07/2017 3:01 PM EDT): -Marie has had multiple recent changes; increased anxiety is likely related to adjustment. -She would benefit from individual therapy. -No medication changes recommended at this time specifically for anxiety. Immunizations Name Administration Dates Next Due Tdap 10/26/2023 Family History Medical History Relation Comments Autism spectrum disorder Brother Constipation Brother ADD / ADHD Father Bipolar disorder Maternal Grandmother Suicide Maternal Grandmother Alcohol abuse Mother Alcohol abuse Paternal Uncle Dyslexia Paternal Uncle Relation Status Comments Brother Father Maternal Grandmother Mother Paternal Uncle Social History Tobacco Use Types Packs/Day Years Used Date Smoking Tobacco: Never Smokeless Tobacco: Never Alcohol Use Standard Drinks/Week Comments Never 0 (1 standard drink = 0.6 oz pur e alcohol) Education Answer Date Recorded Are you interested in more education? Not on yaron e 08/16/2022 Are you concerned about learning? Not on file 08/16/2022 No 08/16/2022 No 08/16/2022 Digital Access Answer Date Recorded No 09/13/2022 No 09/13/2022 Reliable internet access at home? Not on file 09/13/2022 Device with a working camera? Not on file Sex and Gender Information Value Date Recorded Sex Assigned at Female 04/16/2021 2:14 PM EST Gender Identity Non-binary 04/16/2021 2:14 PM EST Sexual Orientation Lesbian or [place] 04/16/2021 2: 14 PM EST Last Filed Vital Signs Vital Sign Reading Time Taken Comments Blood Pressure 135/67 10/26/2023 3:33 AM EDT Pulse 97 10/26/2023 3:33 AM EDT Temperature 37 ??C (98.6 ??F) 10/26/2023 3:33 AM EDT Respiratory Rate 18 10/26/2023 3:33 AM EDT Oxygen Saturation 98% 10/26/2023 3:33 AM EDT Inhaled Oxygen Concentration - - Weight 69.9 kg (154 lb) 04/26/2024 1:58 PM EST Height 160 cm (5' 3 ) 04/26/2024 1:58 PM EST Body Mass Index 27.28 04/26/2024 1:58 PM EST Plan of Treatment Upcoming Encounters Date Type Department Care Team (Late st Contact Info) Description 09/09/2024 1:00 PM EDT Office Visit [place] [facility] [place] [address] [place] [address] Sheila Arana, OD [address] [place] [address] 09/27/2024 8:30 AM EDT Office Visit [facility] [address] [place] [address] Letha Livingston MD [address] [place] [address] [email or web address] 04/11/2025 1:15 PM EST Office Visit [facility] [place] [address] [place] [address] Cass Alberts, OD [address] [place] [address] Health Maintenance Due Date Last Done Comments DEVELOPMENTAL/BEHAVIORAL SCREENING (PHQ, PSC, or SWYC) 09/03/2007 DEPRESSION SCREENING 2016 CHLAMYDIA SCREENING 2020 HEPATITIS C SCREENING 2022 HIV ONE-TIME SCREENING (18-65 YEARS) 2022 BMI ASSESSMENT 04/26/2025 04/26/2024 SMOKING Hx and SMOKELESS TOBACCO SCREENING 04/26/2025 04/26/2024 COMBINED DTaP,Tdap,Td (7 - Td or Tdap) 10/25/2033 10/26/2023, 11/02/2015, 08/24/2008, Additional history exists HEPATITIS A VACCINES Completed 09/03/2006, 09/07/19 MMR VACCINES Completed 09/13/2008, 09/06/2005 VARICELLA VACCINES Completed 09/13/2008, 09/06/2005 HEPATITIS B VACCINES Completed 08/29/2017, 12/04/2005, 2004, Additional history exists HPV VACCINES Completed 09/24/2017, 09/09/2016 MENINGOCOCCAL VACCINES (ACWY) Completed 10/05/2020, 08/29/2017, 11/02/2015 ADOLESCENT UNIVERSAL LIPID SCREENING Completed 03/13/2022, 11/29/2021 COVID-19 VACCINE Completed 02/13/2024, , 04/18/2021 HIB VACCINES Aged Out No longer eligi ble based on patient's age to complete this topic PNEUMOCOCCAL VACCINES (0-49 years) Aged Out No longer eligible based on patient's age to complete this topic Medical Devices Not on file Care Teams Diesel Automotive Technician Relationship Specialty Start Date End Date Agnes Montgomery MD [address] [facility] [address] [place] [address] PCP - General Pediatrics 12/31/16 Additional Source Comments The information contained in this document represents components of the legal health record. It is not the complete legal health record.[facility]
--- OUTSIDE RECORDS SUMMARY | 2024-08-06 14:59 | XMS_ITS | Clinical Summary ---
Author Organization [facility] Address [address] [place] [id number] Phone Care Team Providers Care Counter Intelligence Technician Name Role Phone Agnes Montgomery MD Primary Care Provider Allergies Active Allergy Reactions Criticality Noted Date Comments Escitalopram 11/29/2021 prolonged-QT interval Oxycodone 11/29/2021 Sweating and flushing, nausea, anxiety, shaking Medications busPIRone 10 MG tablet 10 mg 2 (two) times a day. Active cloNIDine HCl ER 0.1 MG tablet sustained-releas e 12 hour Take 0.1 mg by mouth every morning. 0 Active omeprazole 20 MG delayed-release capsule Take 20 mg by mouth daily. 1 Active levalbuterol 45 MCG/ACT inhalerIndicatio ns:Exercise induced bronchospasm INHALE 1 TO 2 PUFFS BY MOUTH EVERY 4 HOURS NEEDED FOR WHEEZING OR SHORTNESS OF BREATH 15 g 2 2 Active Additional Information Patient not taking.Reported on 07/08/2024 Spacer/Aero-Hold ing Chambers deviceIndication s:Asthma, unspecified asthma severity, unspecified whether complicated, unspecified whether persistent Use as directed with metered dose inhaler 1 each 2 Active Additional Information Patient not taking.Reported on 07/08/2024 meloxicam 15 MG tablet Take 15 mg by mouth daily as needed. 3 Active hydrOXYzine 25 MG tablet Take 25 mg by mouth once as needed. 3 Active EPINEPHrine (EpiPen 2-Braydon) 0.3 MG/0.3ML injection syringeIndicatio ns:Adverse food reaction, initial encounter Inject into muscle immediately for signs of anaphylaxis AND call 911. Repeat if symptoms worsen/recur or if uncertain medicine was given 4 each 1 3 Active Additional Information Patient not taking.Reported on 07/08/2024 Calcium Carbonate-Vit D-Min (CALTRATE 600+D PLUS MINIS PO) 2 Active Melatonin 5 MG capsule TAKE 5 MG (1 CAPSULE) BY MOUTH NIGHTLY. 3 Active lamoTRIgine 100 MG tablet Take 100 mg by mouth daily. 100mg QAM, 50 mg QHS 3 Active lamoTRIgine 25 MG tablet Take 75 mg by mouth every evening. 3 Active norethindrone 5 MG tablet Take 7.5 mg by mouth daily. Active Cyanocobalamin (VITAMIN B 12 PO) Take 1,000 mcg by mouth daily. Active Atomoxetine HCl (STRATTERA PO) Take 25 mg by mouth daily. Active levalbuterol 45 MCG/ACT inhalerIndicatio ns:Wheezing Inhale 1-2 puffs every 6 (six) hours as needed for wheezing. 15 g 4 Active Additional Information Patient not taking.Reported on 07/08/2024 flecainide 100 MG tablet Take 100 mg by mouth every 12 hours. 4 11/18/19 25 Active Qvar RediHaler 80 MCG/ACT aerosol Inhale 2 puffs 2 (two) times a day for 14 days. 4 Active methylphenidate 10 MG tablet Take 1 tablet by mouth 2 (two) times a day. 4 Active fluticasone 50 MCG/ACT nasal spray 1 spray 2 (two) times a day. 4 11/19/19 25 Active Active Problems Problem Noted Date Diagnosed Date Ingrown right greater toenail 04/14/2024 Overview (04/14/2024): 04/07/24: Phenol matrixectomy of medial border R great toe performed. F/u 2 weeks. ([facility] Injury of right hand 04/01/2023 Overview (11/27/2023): 12/12: Finished OT, doing well post op. 11/11 [facility] Ortho - doing well 2 months post op; continue OT at home and f/u in 1 month 09/11: DAY SURG: Ulnar and radial sagittal band repair of R hand as well as radial collateral ligament repair of R ring finger done. Plan casting x4 weeks, then OT for 4 weeks after. F/u 8 weeks. 07/12 [facility] Ortho - splint helpful though not entirely; may need surgical intervention; f/u 2 months 05/14 continue with motion splint multimedia manager 2 weeks then slowly wean. F/u 4 weeks. Ortho 04/12 [facility] Ortho - will get MRI Assessment & Plan (11/27/2023 3:51 PM EDT): Finished OT, doing well post op. Endometriosis 09/26/2022 Overview (02/29/2024): 02/04/24: Plan to continue w/ HAZEL for menstrual suppression. Consider discontinuing at some point to eval for spontaneous menses. ([facility] X RAY CONSULTANT - Rabia) 12/12: Followed by X RAY CONSULTANT q 6 months, on Aygestin 5 mg daily. Has not needed laparoscopy. 04/12: X RAY CONSULTANT: Seen for pelvic pain and breakthrough bleeding. On Aygestin 7.5 mg daily, interested in decreasing to 5 mg. Has done well on Aygestin for dysmenorrhea - will trial 5 mg to minimize mood effects. Pain today is mostly in the lower back - more concerning for a musculosketal issue than endometriosis. Will not pursue laparoscopy for endometriosis. F/u 6 months. 01/11: probable endometriosis, will not plan on lap since doing well. Is on it year-round 10/11: is on Aygestin, concern for possible endometriosis, Dr. Erica Camarillo X RAY CONSULTANT. For this reason they are on OCPs year round. Dr. CAMARILLO 12/10: Stopped OCPs 05/2020 because made them irritable. Periods not painful now, less heavy, more regular. Assessment & Plan (11/27/2023 3:33 PM EDT): Followed by X RAY CONSULTANT q 6 months, on Aygestin 5 mg daily. Has not needed laparoscopy. Assessment & Plan (12/20/2022 10:40 AM EDT): On Aygestin year-round, followed by Dr. 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 No epipen needed. 10/11: does not carry epipen, can take zyrtec if has oral sensitivity, diagnosed with oral allergy syndrome. Mom sent info she was given from [employer] in [employer]: She told us the scratch tests showed allergy to the various tree pollens, dust and dust mites, and that the intradermal tests were positive for the molds. Negative for fig and kiwi. 07/11: ALLERGY: Patient seen for rashes and reaction to figs. Skin testing was positive for A Beech, [place], Red mulberry, [place], Dust and dust mites. Negative for fig and kiwi. Assessment & Plan (11/27/2023 3:48 PM EDT): Continues to get itchy mouth with burk peppers, plums, and figs when raw. No epipen needed. Assessment & Plan (01/13/2023 4:37 PM EDT): Has seen trim sawyer, does not carry epipen, can take zyrtec if has oral sensitivity Elevated serum free T4 level 06/25/2022 Overview (05/25/2024): 06/15: low TSH=0.224, FT4 is nl, plan recheck at well visit, sent Sols message to mom. 12/12: Patient had increase in hyperthyroid symptoms post surgery. Had abnormal TFTs 09/2023. Will reorder TFTs and thyroid antibodies for 03/2024. 01/11: had labs done by functional med - mom will send TFTs. Plan rechk in 6 mo, no longer needs to see ENDO 12/11: seen by Dr. Cabrera in ENDO 07/11: in setting of tachycardia post op and Hx PVC's. Refer to ENDO Assessment & Plan (11/27/2023 3:43 PM EDT): Patient had increase in hyperthyroid symptoms post surgery. Had abnormal TFTs 09/2023. Will reorder TFTs and thyroid antibodies for 03/2024. Assessment & Plan (12/20/2022 10:39 AM EDT): Had labs done by functional med - mom will send TFTs. Plan rechk in 6 mo, no longer needs to see ENDO At risk for polypharmacy 06/21/2022 Overview (12/20/2022): Did not see complex care service Dysautonomia 06/12/2022 Overview (05/27/2024): 05/25/24: [facility] - Genetic testing through exome sequencing wnl, consider re-analysis in 1-2y. Likely dx of hypermobile spectrum disorder (HSD). F/u 1y. 12/12: Did not meet criteria for hypermobility EDS. Has non-specific hypermobility. 05/14: GENETICS: Seen for evaluation for a possible connective tissue disorder via VV. Patient with joint hypermobility, recurrent injuries, possible joint subluxations, and chronic pain in feet, knees, back, and hips. They have joint swelling and redness of bilateral knees and they are followed by [facility]. NL ECHO 12/02/22 without evidence of aortic dilation or mitral valve prolapse. Genetics is not suspicious for a specific genetic syndrome, but given Ector's constellation of feature, rec broad spectrum genetic testing through exome sequencing. Joint hypermobility can be isolated or be part of a constellation of features. Patient also with ASD, hx global developmental delay, dysautonomia, and chronic pain. Plan in person visit next month. - Dr. Gillespie 10/11: RHEUM: Since the last visit in rheumatology, they have undergone plica surgery of the right knee which went well and in fact the right knee pain is much improved. Symptoms of Raynaud's phenomenon are stable. Given a number of psychiatric medications that Ector is currently taking and planning on tapering, addition of a neuropathic pain medication would be complex at this time. Recommend continue on meloxicam 15 mg daily but did discuss that tapering it every other day would be quite reasonable when back from camp. The family is interested in seeing genetics for the possibility of evaluation for Reyna-Danlos, but genetics requires an echocardiogram be ordered first thus ordered. Recommend follow-up with cardiology. Follow up in 6 months 06/13: diagnosed 04/11 by RHEUM, cont meloxicam bc of pain and swelling of both knees 06/10/22: Visited ED for numbness on L side of the body as well as dizziness, flushing, fatigue. Dysautonomia could be contributor to this episode, recommended rheum f/u. Assessment & Plan (11/27/2023 3:42 PM EDT): Did not meet criteria for hypermobility EDS. Has non-specific hypermobility. Assessment & Plan (01/13/2023 4:35 PM EDT): Seen 10/11 by RHEUM, dysautonomia is presumptive Dx, on meloxicam 15 mg daily for pain. Has been referred to GENETICS to assess for EDS. F/U 6 mo Assessment & Plan (06/12/2022 4:19 PM EST): Visit to ED 06/10 possibly due to dysautonomia episode (diagnosed by rheum); numbness accompanied by flushing, dizziness, fatigue. Recommended reaching out to continuity novelty twister tender to discuss this possibility. Dry eye 04/01/2022 Overview (11/27/2023): 12/12: Continues on and off. Reports RHEUM tested for sjogrens syndrome and was negative. Followed by OPHTHO. 03/12 artificial tears, getting work up for sjorn syndrome. F/u 1 year [facility] Assessment & Plan (11/27/2023 3:41 PM EDT): Continues on and off. Reports [facility]HE[facility] tested for sjogrens syndrome and was negative. Followed by OPHTHO. Raynaud's phenomenon 12/18/2021 Overview (11/27/2023): 01/11, 12/12: worse in winter 04/11: On examination today again did not reveal any evidence of inflammatory arthritis or enthesitis. No recurrent skin lesions concerning for psoriasis. Normal inflammatory markers, almost normalized platelet count, and stable positive titer YVES 1: 160, negative EDUARD panel. Most of her symptoms appear related to Dysautonomia. Recommended to continue strengthening of the muscles around their joints, especially knee and ankle joints. Follow-up with Dr. Burgos and sports medicine in regards to arthroscopic evaluation of her knee for possible surgical interventions. Recommend aqua therapy, to help provide some of the regulatory input for their sympathetic dysregulation. Recommend evaluation at [facility] for second opinion by ophthalmology. Continue meloxicam until after the surgery. Follow-up in 6 mo 12/10: RHEUM: Stress could be a trigger, please continue current therapy. Can try meloxicam 15mg daily with food and water, can use PRN until endoscopy results. Recommend regular exercise, such as swimming, plus temperature control measures for leg discoloration and Raynauld's. Topical steroids for psoriasis. Follow up in 2-3 months Assessment & Plan (11/27/2023 4:12 PM EDT): worse in winter Back pain 12/18/2021 Overview (11/27/2023): 12/12: Followed by X RAY CONSULTANT, back pain helped by Aygestin 5 mg daily. Has this with endometriosis Assessment & Plan (11/27/2023 3:34 PM EDT): Followed by X RAY CONSULTANT, back pain helped by Aygestin 5 mg daily. Constipation 12/18/2021 Overview (04/29/2024): 04/26/24: Plan to restart Miralax 1 cap qd. F/u 6mo. ([facility]) 12/12: Uses colace and Miralax PRN. 01/11: on and off, colace and miralax prn Assessment & Plan (11/27/2023 4:05 PM EDT): Uses colace and Miralax PRN. Assessment & Plan (12/20/2022 10:38 AM EDT): Continue colace and miralax prn High cholesterol 12/18/2021 Overview (07/16/2024): 07/13: total cholesterol remains high with a slightly improved HDL (good cholesterol) and a slightly worsened non-HDL (bad cholesterol); the triglycerides are normal. Sent Sols message rec that family disc this w [facility] who already follows them 05/15: Elevated total cholesterol = 219, nl TG = 78. Low HDL=35.6. High non- OKE=180.4. Elevated CHOL/HDL ratio = 6.2. Patient is already followed by [facility] for frequent ventricular extrasystoles, on flecainide. Rec family discuss these results with specialist 12/12: Will gets FLPs 03/2024. 03/12: FLP. HDL = 39.3 (low), non-XTO=507 (borderline). Chol/HDL = 4.0, nl TGs. Bad chol improved, HDL has come down, plan rechk at next well visit 12/10: FLP HDL = 55.8 non-HDL =148 - patient going on dairy free diet for new diagnosis of EOE, will rechk later this fall Assessment & Plan (11/27/2023 3:51 PM EDT): Will gets FLPs 03/2024. Chronic pain of right knee 09/25/2021 Overview (11/27/2023): 12/12: Followed by [facility]TH[facility], currently doing PT. 01/11: saw Dr. Phoenix for knee pain, 09/2022. Had steroid injection right knee for painful plica. MRI of right knee showed pad behind knee pad is shredded. Had R knee scope with medial plica resection 05/2022. Patient is now cleared for all activities, f/u in 1 year. 03/12: has had 2 knee injections (Dr. Phoenix). He also ordered MRI, but it did not show a plica, may do investigative arthroscopy. Pain persists, meloxicam since November has helped a little 12/10: Followed by [facility], Dr. Phoenix. Had steroid injection in right knee for painful plica. MRI of right knee showed pad behind knee pad is shredded . Wears knee brace on right when active. 10/10 [facility] Ortho - MRI showing contusion; wear brace and do exercises; u/s and injections in November when return from being away 10/10: see pt message from mom, refer to ORTHO Assessment & Plan (11/27/2023 4:05 PM EDT): Followed by ORTHO, currently doing PT. Assessment & Plan (12/20/2022 10:37 AM EDT): Had R knee scope with medial plica resection 05/2022. Patient is now cleared for all activities, f/u in 1 year. Irregular menses 11/24/2020 Overview (02/13/2024): 02/04/24: Plan to continue on menstrual suppression w/ HAZEL. Consider discontinuing med in future to assess for spontaneous menses. ([facility] Genetic Supervisor - Rabia) 12/11 [facility] X RAY CONSULTANT - will increase Aygestin and seek pain management thru clinic; f/u 3-4 months 05/13: X RAY CONSULTANT: Has done very well with Aygestin 5mg daily with now cessation of bleeding. Reviewed no adverse effects or concerns, no observed effect on mood. Reviewed cannot guarantee 100% amenorrhea but will keep at this dose, and can uptitrate if needed in the future. Reviewed at this point do not think a laparoscopic intervention is indicated at this time. Follow up 6 mo. 03/12: X RAY CONSULTANT: Seen for ongoing pelvic pain and breakthrough bleeding. Started on 2.5mg daily of Aygestin given concern for adverse effects on mood; given Ector has tolerated it, will increase to 5mg daily to see if it helps the pain. Reviewed possibility of pain disorder such as fibromyalgia - has rheum appointment coming up next month. Follow up 3mo 02/09: X RAY CONSULTANT: Has had normal ultrasound and extensive hormonal testing in the past; may be on spectrum of PCOS as there is maternal history of PCOS. They are most interested in trialing another hormonal medication before considering surgery. mood changes as there is no great evidence to demonstrate a causal relationship. Will start Aygestin at 1/2 tablet a day. Follow up 3 mo 12/10: Went off BCP last Feb that had been prescribed for menstrual problems because made them irritable. Periods not painful now, less heavy, more frequent now but not regular. 12/09: ENDO: No menses since July 2020. Follow-up in 4 months to determine if she is having spontaneous menses. If she has not had one, will eval with labs including LH, FSH, free testosterone, 17 hydroxyprogesterone, DHEA-S, prolactin, as well has her thyroid function test that she will be due for. - Dr. Cabrera 10/09: No anemia Assessment & Plan (12/20/2022 10:37 AM EDT): Continue on Aygestin 7.5 mg; f/u 3-4 months. Will consider laparoscopy if pain worsens. Gender identity uncertainty 11/24/2020 Overview (02/17/2024): 02/11: is interested in [facility] referral now 12/12: Uses they/them pronouns - will hold off on GEMS for now. 12/10: Gender transition to nonbinary going well; recently mentioned they feel they are gender fluid. Family would like to defer GEMS for now. 12/09: Came out as non-binary, well supported at [employer], also disc [facility]. Plans to start binding. Assessment & Plan (11/27/2023 3:50 PM EDT): Uses they/them pronouns - will hold off on GEMS for now. Low vitamin D level 07/25/2020 Overview (12/06/2023): 12/12: NL vitamin D level when last checked 05/2023. Will rechk w next labs. 06/14: vit D = 36.3, wnl 12/10: Vitamin D = 34.7 12/10: Taking vitamin D daily and calcium as well. Plan to rechk levels now. 03/2020: 19.6 Assessment & Plan (12/06/2023 5:21 PM EDT): NL vitamin D level when last checked 05/2023. Will rechk w next labs. Low TSH level 05/02/2020 Overview (12/06/2023): 10/12: low TSH, nl free T4, chk q [address] Cabrera 04/12: low TSH and normal FT4, rechk in 6mo per Dr. Cabrera 12/11: ENDO Dr. Cabrera. 11/10 labs with low TSH=0.16, nl FT4, would not cont to chk FT3 levels (poor assay). No intervention needed as long as FT4 level is nl even w/low TSH.If a persistent rise in T4 and T3 occurs in setting of low TSH, then would intervene and treat hyeperthyroidism. Illness, stress, meds can impact TSH levels and some people have baseline lower set point which may be the case for Ector. PLAN: rechk levels in 6 mo, follow up w ENDO is open-ended. 12/10: 03/2021 - labs within normal limits, no need for follow up with Endo unless thyroid symptoms appear. 05/12: ENDO: Rpt labs showed nl free T4, effectively nl T3, nl TSH; TSH receptor antibody was negative. No further testing needed. Rec cont to f/u w/ X RAY CONSULTANT to address heavy menses since not r/t thyroid fxn. - Dr. Cabrera 04/10: ENDO: Recent labs show TSH = 0.33 (L) and free T4 sl elev. Will rpt labs (free T4, T3, TSH, and TSH receptor antibody). Heavy menses not likely r/t thyroid fxn - cont on OCP. F/u pending lab results. - Dr. Cabrera 03/11 labs drawn at [facility] [employer] [facility] - TSH suppressed at 0.31, free T4 elevated at 1.59; will send to [facility] as they have follow up with her in March 202112/09: ENDO: Labs 10/09 showed nl T3 and free T4 and a suppressed TSH of 0.115. Similar to the labs 04/09, however the TSH is further suppressed. Despite the fact that the TSH is suppressed further, her free T4 and T3 remain in the normal range so no intervention to initiate treatment for hyperthyroidism is indicated at this time. Rec repeat labs 2-3 times a year, rpt sooner if any concerning Sx. - Katie Cabrera MD 12/09: Followed by ENDO q 4 mo, no interventions at this time 04/09: ENDO: Rpt labs showed no progression to hyperthyroidism (low TSH, nl FT4, subclinical hyperthyroidism), rec rpt thyroid labs in 2-3 mo. 04/09: ENDO: Low TSH w/ nl FT4 is c/w subclinical hyperthyroidism. Will eval for autoimmune thyroiditis and Graves' disease and f/u after lab results. Will need annual TFTs if labs c/w autoimmune thyroiditis; will need Rx if labs show she had Graves'. - Dr. Cabrera Assessment & Plan (12/06/2023 5:20 PM EDT): Recent labs continued to show low TSH, nl free T4. Plan to chk q [address] Cabrera Suicidal ideation 03/17/2020 Overview (07/30/2024): 07/29/24: Seen at [facility] for self-harm/laceration repair. 12/12: Followed by PSYCH Ros Hatfield at [facility] in [place]. Gets therapy at school weekly. Doing well on 10 mg buspirone, clonidine 0.1 mg, and 150 mg lamictal. Has lorazepam for flying (0.5 ,g, up to 1 mg). Also has methylphenidate 10 mg in am and 5 mg in PM. 10/12: ED: Seen for self harm/ laceration repair. 01/11: no hospitalizations this past year 12/10: Graduated from residential treatment for self-harm etc. October 08. Then attended a 4 week summer program at [employer] in [facility] where they will be boarding for school year (starts Dec.27). 03/10. [facility]. Major depressive d/o, generalized anxiety and ASD. Taken off lexapro, cont's Concerta 63 mg qam, Hydroxyzine 12.5 mg qhs, and Lamictal 100 mg BID. Started on Kapvay 0.1mg in am for impulse control and anxiety but was stopped bc she experienced dizziness/low BP. Was taken off of Buspar but then had increased anxiety, so re-started 7.5 mg BID. Seen by ORTHO for hand injury while in [place]. Also had consults from ENDO and [facility]. Discharged to a program in [place], will retuen to [place] in July 2020 Assessment & Plan (11/27/2023 4:12 PM EDT): Followed by RICHARD Hatfield at [facility] in [place]. Gets therapy at school weekly. Doing well on 10 mg buspirone, clonidine 0.1 mg, and 150 mg lamictal. Has lorazepam for flying (0.5 ,g, up to 1 mg). Also has methylphenidate 10 mg in am and 5 mg in PM. Assessment & Plan (01/13/2023 4:33 PM EDT): No hospitalizations this past year Depressive disorder 02/15/2020 Overview (11/27/2023): 12/12: Followed by RICHARD Hatfield at [facility] in [place]. Gets therapy at school weekly. Doing well on 10 mg buspirone, clonidine 0.1 mg, and 150 mg lamictal. Has lorazepam for flying (0.5 ,g, up to 1 mg). Also has methylphenidate 10 mg in am and 5 mg in PM. 11/11 New psychiatrist Amy Hatfield; new therapist Essence Holly; working to get them into partial program and or DBT 10/12: ED: Seen for self harm/ laceration repair. 12/10: Followed by Dr. Kirk, doing well on current medications - see SI problem and note for more info Assessment & Plan (11/27/2023 3:50 PM EDT): Followed by RICHARD Hatfield at [facility] in [place]. Gets therapy at school weekly (DBT). Doing well on 10 mg buspirone, clonidine 0.1 mg, and 150 mg lamictal. Has lorazepam for flying (0.5 ,g, up to 1 mg). Also has methylphenidate 10 mg in am and 5 mg in PM. Assessment & Plan (11/04/2023 4:36 PM EDT): 11/11 New psychiatrist Amy Hatfield; new therapist Essence Holly; working to get them into partial program and or DBT Premature ventricular contractions 12/24/2018 Overview (02/03/2024): 02/11 [facility]: doing well on flecanide; flec level pending; will have echo, EKG in 6 months with follow up 12/12: Patient with PVCs and benign multifocal ectopy (gets bigeminy and trigeminy). Followed by [facility] - doing well on flecainide 100 mg BID. If flecainide stops working, next step is cardiac ablations. 12/12: [facility]: Admitted to transition pt from vrapamil to flecainide 100 mg BID. Plan f/u in 1 week to obtain flecainide level and EKG. 11/11: [facility]: Holter monitor showed VPB's of 2 morphologies often occurring as couplets and neither clearly corresponding to a classic morphology of either outflow tract or fascicular ventricular ectopy. Total ectopy burden was about 6%, increased from prior study. Plan to stop verapamil and do an overnight observation for initiation of either flecainide or sotalol. 10/12: [facility]: Seen for f/u PVCs. ECHO done showed sinus tachycardia (101 bpm) and polymorphic isolated PVCs . Plan to follow up on ambulatory rhythm monitor returned earlier this week. Cont with sig symptoms that haven't changed on verapamil - will optimize dose to 360 mg daily with BP check in 3-4 days. Rec Ector be seen by an electrophysiology in the interim in about 2-3 months to weigh in on other treatment/management options. F/u [facility] 6-7 months with repeat echocardiogram and rhythm monitor. 09/11: pre-syncopal symptoms and increased PVCs - seen at [facility] ED and cleared by [facility] 07/12: [facility]: Seen for f/u palpitations and hx of PVCs. Palpitations have become more frequent. EKG done - nl sinus rhythm with isolated polymorphic ventricular premature beats. On sinus beats, there is non-specific T wave flattening. ECHO was notable for frequent premature contractions, mild baseline sinus tachycardia. NL valve and NL biventricular function. Exercise stress showed NL exercise capacity, NL HR and blunted BP response. Frequent isolated VPBs and rare ventricular couplets at rest and in recovery with decreased frequency although not absent during exercise. No triplets or ventricular arrhythmias. Two different dominant morphologies without obvious bundle branch block pattern. Plan to trial off methylphenidate with rhythm monitoring. Discuss with ENDO and PSYCH other medication adjustments. Will not add beta blockers as this might exacerbate other medical problems (asthma, depression). Avoid all caffeine. No activity restrictions, bacterial endocarditis prophylaxis not indicated. F/u 1 month to discussed monitor results. - Dr. Yesy Rahman 12/11: CARDS: Had one HOLTER monitor done - PVCs noted. History of prolonged-QTc on lexapro. Seen 03/2020 - nl ECG and nl ECHO. Last seen 03/2021 - normal ECG, no need for follow up. Patient reports they tend to get palpitations during high anxiety moments - rec'd patient meets with ENDO for possible thyroid contribution, PSYCH for affects of stimulants, and PCP for anemia contribution. Reassured her PVC is normal. 01/11: Last seen 11/2022 for palpitations. Had one HOLTER monitor. History of prolonged-QTc on lexapro. Seen 03/2020 - nl ECG and nl ECHO. Last seen 03/2021 - normal ECG, no need for follow up. Patient reports they tend to get palpitations during high anxiety moments - rec'd patient meets with ENDO for possible thyroid contribution, PSYCH for affects of stimulants, and PCP for anemia contribution. Reassured her PVC is normal. 12/11: CARDS: Dr. Rahman. Reassuring echo, EKG w/ predominant NSR, no AV block, w/ occ. Isolated ventricular ectopy. Per cards, pt has benign PVCs that have become more symptomatic. Will obtain an ambulatory rhythm monitor. Patient may have more bothersome PCV's that could be related to anxiety, hyperthyroidism, stimulant medications, dehydration, anemia, or anything that increased sympathetic tone and propensity for ventricular ectopy. Rec patient check with ENDO, PSYCH, and PMD (ck anemia). Reassured, aerobic exercise encouraged, no cardiac precautions. 07/11: seen by Dr. Jennifer Veras. Rpt EKG nl x for non specific ST-T changes unchanged from prior, no ectopy. HR 110 during exam. Hx normal echo, so no concerns for significant CV pathology. Elev HR and PVCs likely related to combo abnl TFTs, polypharmacy, recent allergic reaction and sig anxiety. No concern for electrical diseas, no further testing 07/11: had ED visit after knee surg 06/13, PE ruled out. Tachycardia persists, pt also had non-specific St-T wave changes on EKG, refer to CARDS 06/13: tachycardia and shortness of breath after surgery, neg eval for PE at [facility] ED-normal CTA. EKG w/ sinus tachy and non-specific T wave abnormalities. Pt w/ Hx autonomic dysfunction. 12/10: No need for Cards follow up 04/10: CARDS: H/o prolonged QTc - stopped after dashawnapro was discharged. 2 Holter monitors in past showed freq PVCs but no other concerning pathology. Reassuring exam and ECG today. No need for further testing, therapeutics, or ongoing cards management. - Dr. Recinos 12/09: Followed q 6 mo by CARDS for PVCs 04/09: CARDS: Pt w/ Hx palpitations and PVCs on prior HOLTER, was seen to assess prolonged QTC noted in ED - meds chg'd and subsequent ECGs showed NL QTC intervals. NL ECHO 03/2020. Cleared for participation in [email or web address]. F/u 6 mo for rpt ECG. Plan to repeat Holter 11/2019 - also rec family describe red knees when stands up w/ CARDS 01/07: CARDS: Pt has relatively freq premature beats on EKG. Her resting HR is elev at 100-120 beats/min, which is likely reflective of her anxiety but may also be 2ary to meds that she is on. Plan to complete a 24 hr Holter monitor to quantify the number of PVCs. No restrictions from activity. F/u after Holter results are back. - Dr. Neri 12/07. Nl EKG, pt on ADHD med >1y, refer to CARDS Assessment & Plan (12/06/2023 5:17 PM EDT): Recently admitted to transition pt from verapamil to flecainide 100 mg BID - will f/u in 1 week to obtain flecainide level and EKG. Ector reports they feel much better on flecainide. Assessment & Plan (12/20/2022 10:31 AM EDT): Had a Holter Monitor for 7 days 11/2022. Reassured her PVC is normal - most likely due to anxiety and stimulant medication, f/u PSYCH. Assessment & Plan (06/12/2022 4:16 PM EST): 06/13: Recommended reaching out to primary aligner typewriter to review EKG at [facility]; notable for PVCs (known) as well as nonspecific T wave abnormalities. 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 Had Qvar and Flonase prescribed 10/2023. Discussed continuing Flonase and stopping Qvar. Has levalbuterol for rescue. AAP made and given to pt. 12/10: Less wheezing with exercise, has albuterol as needed 09/07. Uses xopenex prn for EIA. Gets mild env allergies too 10/07. Mom reports albuterol really helps pt when she runs. 09/06. Albuterol trial recommended (pt is ex-preemie and used albuterol when younger). Assessment & Plan (11/27/2023 4:04 PM EDT): Wheezing during summer months when returns from college. Had Qvar and Flonase prescribed 10/2023. Discussed continuing Flonase and stopping Qvar. Has levalbuterol for rescue. AAP made and given to pt. 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 Also sees OPHTHO regularly to monitor for uveitis / iritis. 10/12: [facility]: Seen for f/u hypermobility and pain. Had recent surgery for ligament and tendinous injury in R fourth and fifth fingers - healing well. Continues with low back pain and bilateral knee and ankle pain - no arthritis on exam. Refer to PT. Patient not open to x-rays at this time (worried about radiation). F/u if PT is unsuccessful. 01/11: Seen 10/11, dysautonomia is presumptive Dx, on meloxicam 15 mg daily for pain. Has been referred to [facility] to assess for EDS. F/U 6 mo 03/12: swelling of bilat knees, more tests done by Dr Magallanes were inconclusive. ? Dysautonomia (pt with no syncope but gets light headed if locks knees). Meloxicam started 12/10, helps some. 12/10: [facility]: Stress could be a trigger, please continue current therapy. Can try meloxicam 15mg daily with food and water, can use PRN until endoscopy results. Recommend regular exercise, such as swimming, plus temperature control measures for leg discoloration and Raynauld's. Topical steroids for psoriasis. Follow up in 2-3 months 12/09, 12/10: Followed q 2 yr by [facility] 04/09: Seen vitually by [facility], Dx'd w/ Raynaud's phenomenon 09/07. Red knees and mottled legs daily - rec family discuss w/ [facility] 09/06: Followed annually by [facility], no meds. 04/07: [facility]: Pt w/ pos YVES and joint pain in her knees w/ reassuring exam. Suspect patellofemoral disorder given her Hx of IT band Sx's w/ tight hamstring. Rec PT. Finger pain and transient arm stiffness - may be early inflammatory arthritis, monitor for now. F/u 1 yr. - Samia Minaya MD 03/08: [facility], saw Dr. Samia Minaya in August 2017. Low level YVES w/out definitive arthritis, neg Lyme testing. No f/u scheduled. Assessment & Plan (12/06/2023 5:15 PM EDT): Followed by [facility], currently doing PT for ankle and knee pain. Also sees OPHTHO regularly to monitor for uveitis / iritis. Assessment & Plan (12/20/2022 10:36 AM EDT): Seen 10/11, dysautonomia is presumptive Dx, on meloxicam 15 mg daily for pain. Has been referred to [facility] to assess for EDS. F/U 6 mo Anxiety 01/07/2017 Overview (11/27/2023): 12/12: Followed by PSYCH Ros Hatfield at [facility] in [place]. Gets therapy at school. Doing well on 10 mg buspirone, clonidine 0.1 mg, and 150 mg lamictal. Has lorazepam for flying (0.5 ,g, up to 1 mg). Also has methylphenidate 10 mg in am and 5 mg in PM. 01/11: on clonidine and hydroxyzine, followed by PSYCH at [facility] 12/10: Followed by Dr. Kirk, doing well on current medications - see note 12/09: Followed by therapist at [facility]. Weaning of Buspirone, conts on Lamictal and ADHD meds 09/06, 09/07. Dr. Gómez for CBT. Pt is on buspar 7.5 mg BID, Lamictal 100 mg BID and ADHD medications. Dr. Kirk follows her at [facility] Assessment & Plan (11/27/2023 3:31 PM EDT): Followed by RICHARD Hatfield at [facility] in [place]. Gets therapy at school. Doing well on 10 mg buspirone, clonidine 0.1 mg, and 150 mg lamictal. Has lorazepam for flying (0.5 ,g, up to 1 mg). Also has methylphenidate 10 mg in am and 5 mg in PM. Attention deficit hyperactivity disorder (ADHD) 01/07/2017 Overview (11/27/2023): 12/12: Followed by RICHARD Hatfield at [facility] in [place]. Gets therapy at school. Doing well on 10 mg buspirone, clonidine 0.1 mg, and 150 mg lamictal. Has lorazepam for flying (0.5 ,g, up to 1 mg). Also has methylphenidate 10 mg in am and 5 mg in PM. 01/11: only on short acting methylphenidate, 10 mg in am and 5 mg in pm 12/10: Followed by Dr. Kirk, doing well on methylphenidate ER 54 mg and 5 mg short-acting in AM and 10 mg short-acting in PM. 12/09: Followed qo wk by psychiatrist, Dr. Colon, at [facility]. Weaning buspirone, conts on Lamictal and ADHD meds as noted below. Will return to see Dr. Kirk at the [facility] when pt comes home. 09/06, 09/07: Pt is on buspar 7.5 mg BID, Lamictal 100 mg BID and ADHD medications (Concerta 27+36 and pm 5mg boost of short acting methylphenidate). Dr. Kirk follows her at [facility] q 3 mo 08/07: Seen at [facility] for f/u medication. Seen by Luli Kirk MD, cont on same dose/med. Per our records, pt is on methylph 54 CR and methyl 5 mg as well as burpirone 5 mg and lamictal 100 mg. Meds are not listed in consult note. 03/08: Followed by Dr. Kirk at [facility] for ADHD and Anxiety. Concerta increased 01/05. Buspan added 04/06. Assessment & Plan (11/27/2023 3:31 PM EDT): Followed by PSYCH Ros Hatfield at [facility] in [place]. Gets therapy at school. Doing well on 10 mg buspirone, clonidine 0.1 mg, and 150 mg lamictal. Has lorazepam for flying (0.5 ,g, up to 1 mg). Also has methylphenidate 10 mg in am and 5 mg in PM. Assessment & Plan (12/20/2022 10:35 AM EDT): Continue on short acting methylphenidate, 10 mg in am and 5 mg in pm. Myopia of both eyes 12/31/2016 Overview (12/06/2023): 12/10, 01/11, 12/12: Followed qo yr at [facility], monitored for uveitis/iritis as well given +YVES 04/10: No evidence of uveitis, eyes slightly more myopic, increased rx. F/u 1 year 12/09: Followed qo yr at [facility] 01/08 [facility] - no evidence of uveitis; artificial tears for dry eye; new glasses rx; f/u 1 year 09/06. Will FU with [facility] gets chkd for uveitis Glasses age 10 y Assessment & Plan (12/06/2023 5:22 PM EDT): Followed qo yr at [facility], monitored for uveitis/iritis as well given +YVES Assessment & Plan (12/20/2022 10:32 AM EDT): Followed q year at [facility]. Autism 12/31/2016 Overview (11/27/2023): 12/12: Followed by PSYCH Ros Hatfield at [facility] in [place]. Gets therapy at school. Doing well on 10 mg buspirone, clonidine 0.1 mg, and 150 mg lamictal. Has lorazepam for flying (0.5 ,g, up to 1 mg). Also has methylphenidate 10 mg in am and 5 mg in PM. 08/12: [facility]: Seen for exome sequencing consent - family will pursue this. Elected to receive [facility] secondary findings. F/u 4 months to review results. 01/11: on buspirone(anxiety) and lamictal (mood regulation)- see well visit 12/10: Followed at [facility] by Dr. Kirk, doing well on current medications - see note 12/09: Followed qo wk by psychiatrist, Dr. Colon, at [facility]. Weaning buspirone, conts on Lamictal and ADHD meds. Will return to see Dr. Kirk at the [facility] when pt comes home. 09/07. Q3mo, cont on meds below 09/06: Pt is on buspar 7.5 mg BID, Lamictal 100 mg BID and ADHD medications. Dr. Kirk follows her at [facility] q 6 mo. 08/07: Seen at [facility] for f/u medication. Seen by Luli Kirk MD, cont on same dose/med. Per our records, pt is on methylph 54 CR and methyl 5 mg as well as burpirone 5 mg and lamictal 100 mg. Meds are not listed in consult note. 01/05. Is on [id number] ER in am, 5mg short acting methylphenidate in pm. Lamictal 100 mg BID for mood stabilization. 5 mg melatonin and 25 mg benadryl qhs for sleep. Is also on citrical (vitamin D and calcium). Assessment & Plan (11/27/2023 3:32 PM EDT): Followed by PSYCH Ros Hatfield at [facility] in [place]. Gets therapy at school. Doing well on 10 mg buspirone, clonidine 0.1 mg, and 150 mg lamictal. Has lorazepam for flying (0.5 ,g, up to 1 mg). Also has methylphenidate 10 mg in am and 5 mg in PM. Assessment & Plan (12/20/2022 10:32 AM EDT): Continue on buspirone(anxiety) and lamictal (mood regulation) . GERD (gastroesophageal reflux disease) 7 Overview (04/29/2024): 04/26/24: Plan for famotidine 20mg BID prn. Transition to omeprazole 20mg BID if no sx improvement in 2 weeks. Restart Miralax 1 cap qd. F/u 6mo. ([facility]) 12/12: Followed by GI at [facility]. On 20 mg omeprazole PRN. 01/11: followed by GI at [facility]. Avoids some dairy; tried to wean omeprazole but could not, currently on omeprazole 20 mg daily. Rec follow up with GI who is prescriber Uses miralax prn 01/10 [facility] - will attempt to wean omeprazole this fall but not yet; continue dairy free diet and 1/2 cap of miralax daily; f/u 03/12: no EOE on scope. Plan on weaning off omeprazole. GI doc: Dr. Eller, [facility] 12/10: ENDO: Trying dairy free diet x6-8 weeks, plan to repeat endoscopy 02/2022. 12/10: ENDO: Endoscopy showed longitudinally marked mucosa in the esophagus - biopsied. Normal mucosa was found in the entire stomach - biopsied. Normal mucosa was found in the duodenal bulb and in the second portion of the duodenum - biopsied. Recommend awaiting pathology results. Follow up with GI in 2 weeks. - Letha Livingston MD 12/10: Followed by GI. ON omeprazole 20 mg two times a day. Scheduled for endoscopy due to recurrent reflux. 08/10: GI: Seen at [facility]. Discussed bleeding most likely from perianal fissure. Plan to start Miralax again, 1 cap daily for the next few days, then 3/4 cap when returns to school. Continue omeprazole 20 mg two times a day. Could add Preparation H if hemorrhoids are present. Endoscopy appointment scheduled for 09/2021, if still bleeding consider colonoscopy as well. - Dr. Livingston 04/10: GI: Followed at [facility]. Plan to incr omeprazole to 20 mg BID. Mild constipation - plan to start Miralax 1 cap (17g) daily PRN - can adjust to 3/4 cap if loose stools. Plan for endoscopy when pt is next home. 12/09: Followed q 6mo at [facility] - on omeprazole. 09/07. On Pepcid Complete, followed q 6 mo 07/08: [facility]: Pt w/ fxnal dyspepsia which has increased w/ anxiety surrounding the COVID-19 crisis. Responsive to TUMS. Plan to return to Pepcid/famotidine, an H2 antagonist for better acid suppression. Is still having Sx multiple x/wk over the next few weeks, can consider restarting omeprazole 20 mg daily. F/u in 3 mo. - Dr. Livingston 03/09 prilosec 20mg PRN, track use, follow up 4 mo 12/07: GI: Seen at the [facility] for Autism in f/u Pediatric Gastroenterology consultation. Abd pain, appetite, and wt gain improved w/ a combo of omeprazole 20 mg QD, increasing caloric intake - smoothies, and increased dose of buspar for anxiety. Had disc'd trying wean off the omeprazole when she returned from [facility], but she has been having reflux Sx. Thus, will cont the omeprazole at the current dose of 20 mg QD and if this subsides over the next few mo, try yo wean off the PPI at that point. F/u 3 mo. - Dr. Letha Livingston 09/06: GI ([facility]): Pt w/ initial epigastric abd pain, Sx of GERD, decreased appetite, and wt loss w/ low BMI. Screening labs were nl in terms of celiac serology and inflammatory markers, but still w/ +YVES. Her wt loss was consistent w/ insufficient caloric intake. Abd pain, appetite, and wt gain improved w/ a combination of omeprazole 20 mg QD, increasing caloric intake, and increased dose of Buspar for anxiety. No correlation btw PSYCH med chgs and GI Sx noted. She is now asymptomatic, w/ good appetite. Will try to wean off the omeprazole after overnight Summer camps. Return in 3 mo. - Letha Livingston MD 09/06: Doing well on Prilosec, followed by GI. 01/05. On OTC omeprazole, prev followed by ZAY CURRIE in [place] Assessment & Plan (11/27/2023 3:26 PM EDT): Followed by KUSH at [facility]. On 20 mg omeprazole PRN. Assessment & Plan (12/20/2022 10:34 AM EDT): Currently on omeprazole 20 mg daily and Miralax PRN. Rec follow up with GI who is prescriber. Resolved Problems Problem Noted Date Diagnosed Date Resolved Date Sagittal band rupture at met acarpophalangeal joint 09/25/2023 09/25/2023 Overview (09/25/2023): 10/12: [facility]: Seen for evaluation of Palpitations 01/12/2023 11/27/2023 Overview (09/16/2023): 09/11: pre-syncopal symptoms and increased PVCs - seen at [facility] ED and cleared by [facility]DS 07/12: [facility]: Seen for f/u palpitations and hx of PVCs. Palpitations have become more frequent. EKG done - nl sinus rhythm with isolated polymorphic ventricular premature beats. On sinus beats, there is non-specific T wave flattening. ECHO was notable for frequent premature contractions, mild baseline sinus tachycardia. NL valve and NL biventricular function. Exercise stress showed NL exercise capacity, NL HR and blunted BP response. Frequent isolated VPBs and rare ventricular couplets at rest and in recovery with decreased frequency although not absent during exercise. No triplets or ventricular arrhythmias. Two different dominant morphologies without obvious bundle branch block pattern. Plan to trial off methylphenidate with rhythm monitoring. Discuss with ENDO and PSYCH other medication adjustments. Will not add beta blockers as this might exacerbate other medical problems (asthma, depression). Avoid all caffeine. No activity restrictions, bacterial endocarditis prophylaxis not indicated. F/u 1 month to discussed monitor results. - Dr. Yesy Rahman 12/11: CARDS: Had one HOLTER monitor done - PVCs noted. History of prolonged-QTc on lexapro. Seen 03/2020 - nl ECG and nl ECHO. Last seen 03/2021 - normal ECG, no need for follow up. Patient reports they tend to get palpitations during high anxiety moments - rec'd patient meets with ENDO for possible thyroid contribution, PSYCH for affects of stimulants, and PCP for anemia contribution. Reassured her PVC is normal. 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 Normal MRI, normal exam. Diagnosed with Functional Neurological Disorder - recommend informing therapist and psychiatrist about incident. Follow up 12 months. Assessment & Plan (12/20/2022 10:40 AM EDT): No further episodes. EBV infection 07/19/2022 11/27/2023 Overview (07/19/2022): 07/11 + IgG; past infection likely unknown when Oral allergy syndrome 06/27/20222022 Overview (10/04/2022): 10/11: mom sent hand written allergy testing - see scanned media. Looks like pt is allergic to [place], [place], red mulberry, hickory, kota, dust and dust mites. Unclear whether molds, ragweed and pets dander are issues 07/11: Per trim sawyer. Tachycardia 06/21/2022 12/20/2022 Overview (06/28/2022): 07/11: seen by Dr. Jennifer Veras. Rpt EKG nl x for non specific ST-T changes unchanged from prior, no ectopy. HR 110 during exam. Hx normal echo, so no concerns for significant CV pathology. Elev HR and PVCs likely related to combo abnl TFTs, polypharmacy, recent allergic reaction and sig anxiety. No concern for electrical diseas, no further testing 07/11: had ED visit after knee surg 06/13, PE ruled out. Tachycardia persists, pt also had non-specific St-T wave changes on EKG, refer to [facility]DS Numbness 06/12/2022 11/27/2023 Overview (01/13/2023): 10/11: Seen 09/2022 for an episode where they felt something bad was going to happen, then a dreamlike state, followed by loss of feeling in her left side. MRI showed no abnormal findings. Discussed symptoms are similar to FND = functional neurologic disorder, and rec'd f/u with psychiatrist and therapist. No episodes since. F/u in 12 months. 06/12/22: L sided numbness of face and body. Improving, but present and a/w fatigue and dizziness as well as eye pain. Brain MRI normal at [facility]. Referred to neuro. Assessment & Plan (01/13/2023 4:39 PM EDT): Has not recurred. Thought to have Sx of FND. Follow up 12 mo Assessment & Plan (06/12/2022 4:25 PM EST): 06/10/22: seen for ED f/u on 06/12/22 for episode of numbness, vision changes, and fatigue. Concern raised for MS by consulting neuro team; MRI brain normal without signs of mass, no abnormal enhancement, no hydrocephalus, and no orbital abnormalities. Numbness improved but ongoing; not in clear neurologic distribution for spinal cord lesion given both facial and peripheral involvement as well as differing sensation in medial and lateral areas of limbs. Other possible etiologies include polypharmacy after knee arthroscopy, dysautonomia, psychogenic. Recommended neuro follow up for possible spinal MRI. Pain of foot 03/25/2022 11/27/2023 Overview (12/20/2022): See YVES positive PL Assessment & Plan (01/13/2023 4:36 PM EDT): Pt is YVES positive, followed by [facility] and [facility]. Insomnia 12/18/2021 12/20/2022 Left lower quadrant pain 12/06/202111/2023 Overview (12/06/2021): 12/10: seen in ED. US showed L ovary w/ good flow but a size discrepancy. Genetic Supervisor consulted, not thought to be torsed. Nl UA. Will follow up with [facility] Secondary physiologic amenorrhea 11/29/2021 11/27/2023 Overview (05/30/2023): 04/12: [facility]: Seen for pelvic pain and breakthrough bleeding. On Aygestin 7.5 mg daily, interested in decreasing to 5 mg. Has done well on Aygestin for dysmenorrhea - will trial 5 mg to minimize mood effects. Pain today is mostly in the lower back - more concerning for a musculosketal issue than endometriosis. Will not pursue laparoscopy for endometriosis. F/u 6 months. 01/11: probable endometriosis, will not plan on lap since doing well. Is on it year-round 10/11: is on Aygestin, concern for possible endometriosis, Dr. Erica Camarillo [facility]. For this reason they are on OCPs year round. Dr. CAMARILLO 12/10: Stopped OCPs 05/2020 because made them irritable. Periods not painful now, less heavy, more regular. Assessment & Plan (12/20/2022 10:38 AM EDT): Probable endometriosis, will not plan on lap since doing well. Is on 7.5 mg Aygestin year-round. Prolonged Q-T interval on ECG 04/27/2020 11/24/2020 Overview (11/24/2020): ?? 12/09: Followed by [facility] q 6 mo for PVCs ?? 04/09: CARDS: Pt w/ Hx palpitations and PVCs on prior HOLTER, was seen to assess prolonged QTC noted in ED - meds chg'd and subsequent ECGs showed NL QTC intervals. NL ECHO 03/2020. Cleared for participation in [employer] [facility]. F/u 6 mo for rpt ECG. - Dr. Neri ?? 03/10: ECG done while pt hospitalized in [facility], referred to CARDS. Injury of hand, right 04/15/20202020 Overview (04/17/2020): 04/09 [facility] Orth[facility] - cast removed and placed in cock-up splint for comfort; work on hand strength; f/u as needed 04/09 ? Occult fracture. casted f/u 2-3 weeks ([facility] ORTHO) Self-injurious behavior 03/10/2020 08/0 09/2020 Overview (11/04/2023): 11/11 self harm right upper thigh; needed 11 sutures; psychiatrist and therapist working to get her into partial program and or DBT; pt is not currently self harming though did remove her own sutures 03/10, see note Assessment & Plan (11/04/2023 4:37 PM EDT): 11/11 self harm right upper thigh; needed 11 sutures; psychiatrist and therapist working to get her into partial program and or DBT; pt is not currently self harming though did remove her own sutures Depressive disorder 02/15/2020 11/25/19 Overview (07/25/2020): Last Assessment & Plan: -Discussed treatment options -Start Lexapro 2.5 mg for 1 week then increase to 5 mg -Reviewed the risks benefits and side effects including activation, mood changes, serotonin syndrome and the black box warning -Family will call with an update in 2 weeks or sooner if concerns arise -Developed a safety plan, including mobile crisis, her therapist, and the [facility] electronic scanner operator Muscle strain of left scapular region 02/09/2020 11/24/2020 Overview (02/09/2020): 01/08 [facility] - periscapular strain after rolling heavy suitcase; referred to PT; f/u 8 weeks Obstruction of submandibular duct 12/18/2019 11/24/2020 Overview (01/20/2020): ?? 01/08: ORL: Pt is s/p abx Rx for what appears to be an obstructed L sublingual duct. Exam c/w mild inflammation of L Filiberto's duct, rec cont to maintain good hydration and sour lozenges w/ massaging of the area. RTC if worsens. - Dr. Campos ?? 12/08 amox x 10 days f/u 3-4 weeks ([facility] ENT) Sialolithiasis 12/04/2019 11/24/2020 Overview (12/07/2019): 11/2019- second episode. 1st episode was a few years ago. Saw ENT--> added amox BID in addition to sour lozenges and warm compress. F/u 2-4 weeks. Acne vulgaris 09/10/2019 11/24/2020 Closed nondisplaced fracture of distal phalanx of lesser toe of left foot with routine healing 12/26/2018 09/10/2019 Overview (12/26/2018): 01/07 L ankle instability. Start PT. F/u if clearance needed to return to sports ([facility] ortho) 12/07 healing, boot for 3 weeks. [facility] ortho Closed fracture of phalanx o f right fourth toe with routine healing 10/13/2018 12/21/2018 Overview (11/30/2018): 11/06 air cast boot. Follow up 1 month [facility] ortho Concussion without loss of consciousness 03/01/2018 09/10/2019 Overview (05/07/2018): ?? 05/09: Sports Medicine: Seen in f/u for 1st lifetime concussion sustained during gym class on 01/29/18. 3 mo out, she is asymptomatic for the last 2 wks. OK to return to full activities. F/u PRN. - Juan Cardozo MD ?? 03/08 - improving, nl academics and sports that are not zain risk, f/u 4 - 6 wks ([facility]) ?? 02/05 impact testing - normal progression/recovery okay to progress slowly - f/u 3 weeks. Weight loss 01/05/2018 09/10/2019 Overview (09/10/2019): ?? 09/07. Resolved. Please see VV from 09/10/19 for full Hx of this problem ?? 09/06: Weight loss resolved, doing well on Prilosec, followed by GI. ?? 03/08: Seen by GI at [facility]. Abd pain increased end of Nov 2017 - ?stress about returning to school. Also w/ reflux Sx. Appetite decreased and she has lost 11lb in the last 6mo (90lb in June, to 79lb). Hx of severe GERD as an . On initial eval on 01/05 labs were nl celiac screening, nl chem 20, and CBC w/ differential, ESR, and CRP. TSH was slightly abnormal but T3/T4 nl. YVES still positive. Now taking omeprazole 20mg daily. B/c still YVES +, RHEUM ordered more labs (not done yet). Abd pain has not coincided w/ increased in [place] suspect weight loss is due to insufficient caloric intake. She has a low appetite, does not report limiting intake secondary due to pain. Cont omeprazole and increase calories. F/u in 2 mo. - Letha Livingston MD ?? 02/05: Seen by GI at [facility]. Epigastric abd pain w some reflux Sx and weight loss w low BMI. Her weight loss is due to insufficient caloric intake - has a low appetite. Has a history of severe infantile GERD and has been on/pff antacids periodically for many yrs. She may also have ongoing reflux Sx. She has not yet started the omeprazole. Differential Dx includes celiac disease, inflammatory bowel disease, functional abd pain/anxiety, compounded by low appetite. Reviewed med changes. Her Conserta dose was increased a year ago (Dec 2016). Buspar was added in Mar 2017. Sx began in the Spring 2017. Start omeprazole 20mg daily. Work on nutrition changes. Blood tets for Rheumatology, f/u w Dr. Minaya. Return in about 6 wks. - Dr. Letha Livingston ?? 01/06 trial prilosec 20mg daily, f/u 1 mo ([facility]) Tinea versicolor 09/30/2017 09/10/2019 Overview (09/10/2019): ?? 09/06: persists. Pt does not like Selenium sulfide smell - will prescribe ketoconazole 2% cream daily x 14 d. Knee pain, bilateral 09/12/2017 024 Overview (11/27/2023): 12/12: Finished PT, symptoms resolved. 10/12: ORTHO: Seen for f/u R knee pain s/p arthroscopic plica. Occ popping, but does not affect patient, so will continue to monitor. Rec PT. F/u PRN. 09/10 [facility] Sports Med - doing well 3 weeks out; given advanced knee PT protocol; plan for f/u 6 weeks for sports clearance 05/13 [facility] Sports [facility] - plan for surgical intervention of R knee given failure of conservative management; will have right knee arthroscopic plica in near future 03/12 new MRI reassuring. Discussed surgical options - in the meantime work on strength including SLR exercises. Continue to work up with rheum for further diagnostics. 01/10 [facility] Sports Med - second injection; f/u 12/10: Steroid injection bilaterally for painful plica. Followed by Ortho, Dr. Phoenix. Is due for follow up with Rheum now 12/09: Followed q2 yr by RHEUM 09/07. Pt gets red knees and mottled skin when she stands up. Rec return to RHEUM and disc w/ CARDS as well 08/2018. Needs fu appt with RHEUM. Watchful waiting for now. Stiff knees and hands in am sometimes, sometimes knees and hands turn red 08/2017 b/l intermittent red and swollen knees. Not likely to be JRA or lupus, low concern for Lyme Disease. No ortho referral rec'd. Continue to monitor, f/u 11/2017 ([facility] Rheum) Assessment & Plan (12/20/2022 10:35 AM EDT): F/u right knee arthroscopic plica in 1 year - cleared for all activity. Sever's disease 08/18/2017 09/01/2018 Overview (09/01/2018): 09/06. Resolved Sever's disease 08/18/2017 09/10/2019 Overview (09/01/2018): 09/06: Has night boot to help w/ Achilles' stretching. Closed fracture of left wrist 06/27/2017 09/10/2019 Overview (06/27/2017): 06/05/17 ([facility]) healing left salter Dennis 1 distal radius fracture - cock up wrist splint and OT prn. 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 Jang, for foot pain. 4th metatarsal right foot pain 4 months ago. X-ray in [place] showed no fracture. 04/10 [facility] Ortho - pes planovalgus, plantar fasciitis, and posterior tibial tendonitis; plan includes heel-cord stretching, now orthotics, and nighttime dorsiflexion splints; f/u prn 09/06 - night boot, inserts ([facility] Ortho) 09/06: Seen for 1 yr f/u, new set of orthotics. New ice skates helped pain. Night boots to stretch her Achilles Rx'd 07/06 ([facility]) pain with running, advised short course in boot, then activity limitation and PT until recovered. Surgical correction 06/07 ([facility] Ortho) 04/06 - doing well, f/u in several months ([facility]) 01/05: s/p surgery Scoliosis 12/31/2016 11/24/2020 Overview (09/01/2018): 09/06. Scoliosis is mild Gastroesophageal reflux disease 12/31/2016 12/20/2022 Overview (12/20/2022): 01/11: tried to wean but could not, currently on omeprazole 20 mg daily. Rec follow up with GI who is prescriber 03/12: no EOE on scope. Plan on weaning off omeprazole. GI doc: Dr. Eller, [facility] 01/05. On OTC omeprazole, prev followed by [facility] in [place] Encounters Date Type Department Care Team Description 08/06/2024 2:22 PM EDT - Present Hospital Encounter [facility] - Patient Ping 07/29/2024 [place] [address] Clary Nichols, SUSIE went to ED for wound, will need stitches taken out 07/10/2024 [place] [address] Rolan Romero MD 07/08/2024 11:30 AM EDT Office Visit [address] [address] Simon Mosqueda, TEJ Laceration of left lower extremity, initial encounter (Primary Dx) 06/27/2024 [place] [address] Erica Jesus, SUSIE High cholesterol 05/25/2024 [place] [address] Agnes Montgomery MD lab results 05/12/2024 [place] [address] Agnes Montgomery MD Labs Only from Last 3 Months Immunizations Immunization Administration Dates Next Due COVID-19 Moderna, bivalent, 12+ years 02/13/2022 COVID-19 Pfizer, monovalent, 12+ years 1,09/04/2020 DTaP 08/24/2008, 6,03/05/2005,01/03,2004 HPV Vaccine 9 Valent 09/24/2017,09/09/2016 Hep A, ped/adol 09/03/2006,09/06/2005 Hep B, ped/adol 08/29/2017, 6,2004,10/29 HiB 12/04/2005,01/03/2005,2004 IPV 09/03/2008, 5,01/03/2005,11/09 Influenza 03/05/2005 Influenza, injectable, quadr ivalent, preservative free 02/13/2022,12/30/2019,01/12/2019,01/13,01/04/2017 MMR 09/13/2008,09/06/2005 Meningococcal B Bexsero 11/24/2020,10/05/2020 Meningococcal Conj (Menactra) MCV4P 08/29/2017,0 11/02/2015 Meningococcal Conj (Menveo) MCV4O 10/05/2020 Pneumococcal Conjugate 09/06/2005,2004,01/03/2005,11/09 Tdap 10/26/2023,11/02/2015 Varicella 09/13/2008,09/06/2005 Family History Medical History Relation Name Comments Autism spectrum disorder Brother Obesity Brother Arthritis Father Hypertension Father Heart attack Maternal Grandfather Bipolar disorder Maternal Grandmother Rheum arthritis Maternal Great-Grandmother Depression Mother Diabetes Mother T2 Hyperlipidemia Mother on statin sin ce 48y Hypertension Mother LPa Mother Polycystic ovary syndrome Mother Hyperthyroidism Other Maternal Great Aunt Hypothyroidism Paternal Grandfather Thyroid disease Paternal Grandfather Osteoarthritis Paternal Grandmother Relation Name Status Comments Brother Father Maternal Grandfather Maternal Grandmother Maternal Great-Grandmother Mother Other Maternal Great Aunt Alive Paternal Grandfather Paternal Grandmother Social History Tobacco Use Types Packs/Day Years Used Date Smoking Tobacco: Never Smokeless Tobacco: Never Tobacco Cessation:Counseling Given: Not Answered Alcohol Use Standard Drinks/Week Comments Never 0 [...] Sexual Orientation Another orientation 3:55 PM EDT Last Filed Vital Signs Vital Sign Reading Time Taken Comments Blood Pressure 120/77 11/27/2023 2:56 PM EDT Pulse 97 11/27/2023 2:56 PM EDT Temperature 37.1 ??C (98.8 ??F) 07/08/2024 11:27 AM E DT Respiratory Rate - - Oxygen Saturation 98% 10/31/2023 11:38 AM EDT Inhaled Oxygen Concentration - - Weight 68.5 kg (151 lb) 07/08/2024 11:27 AM EDT Height 160 cm (5' 3 ) 11/27/2023 2:56 PM EDT Body Mass Index 26.75 11/27/2023 2:56 PM EDT Plan of Treatment Health Maintenance Due Date Last Done Comments Chlamydia and Gonorrhea Screening 04/21/2024 DTaP,Tdap,and Td Vaccines (7 - Td or Tdap) 10/25/2033 10/26/2023, 11/02/2015, 08/24/2008, Additional history exists Pneumococcal Vaccine Completed 09/06/2005, 03/05/2005, 01/03/2005, Additional history exists HIB Vaccines Completed 12/04/2005, 12/20, 2004 Hepatitis A Vaccines Completed 09/03/2006, 09/07/19 06 IPV Vaccines Completed 09/03/2008, 02/19, 01/03/2005, Additional history exists MMR Vaccines Completed 09/13/2008, 09/06/2005 Varicella Vaccines Completed 09/13/2008, 09/06/2005 Hepatitis B Vaccines Completed 08/29/2017, 12/04/2005, 2004, Additional history exists HPV Vaccines Completed 09/24/2017, 09/09/2016 Meningococcal Vaccine Completed 10/05/2020 , 08/29/2017, 11/02/2015 Men B Vaccine Completed 11/24/2020, 10/05/2020 COVID-19 Vaccine Completed 02/13/2024, , 04/18/2021, Additional history exists Influenza Vaccines Completed 02/13/2024, 1 , 12/30/2019, Additional history exists Procedures * The patient is currently admitted. The information in this section might not be complete until the patient is discharged.Due to [place] state law, this organization might not be sharing sensitive test results. Procedure Name Priority Date/Time Associated Diagnosis Comments LIPID PANEL, FASTING Routine 07/09/2024 8:57 AM EDT High cholesterol AMB REFERRAL TO GENETICS Routine 05/25/2024 8:38 AM EST Dysautonomia YVES positive Chronic pain of right knee TSH Routine 05/14/2024 12:19 PM EST Elevated serum free T4 level Low TSH level T4, FREE Routine 05/14/2024 12:19 PM EST Elevated serum free T4 level Low TSH level THYROID PEROXIDASE ANTIBODY Routine 05/14/2024 12:19 PM EST Elevated serum free T4 level Low TSH level LIPID PANEL, FASTING Routine 05/14/2024 12:19 PM EST Elevated serum free T4 level Low TSH level THYROGLOBULIN ANTIBODIES Routine 05/14/2024 12:19 PM EST Elevated serum free T4 level Low TSH level VITAMIN D 25 OH TOTAL Routine 05/14/2024 12:19 PM EST Elevated serum free T4 level Low TSH level from Last 3 Months Results * Due to [place] state law, this organization might not be sharing sensitive test results. * Lipid Panel, Fasting (07/09/2024 8:57 AM EDT) Only the most recent of2 resultswithin the time period is included. [facility] Cholesterol, Fasting 233 mg/dL 07/09/2024 2:[address] [facility] Comment: For young adults (> 19 years of age)?? Total cholesterol: <190 mg/dL acceptable, 190 - 224 mg/dL borderline high, greater than or equal to 225 mg/dL high.? For children and adolescents (<= 19 years of age): Total cholesterol: <170 mg/dL acceptable, 170 - 199 mg/dL borderline high, greater than or equal to 200 mg/dL high.?? Reference: Expert Panel on Integrated Guidelines for Cardiovascular Health and Risk Reduction in Children and Adolescents: Summary Report. ??NIH Publication 12- 7486A. January 2012. ??Available online at??http://www.nhlbi.nih.gov/guidelines/cvd_ped/peds_guidelines_sum.pdf or http://www.nhlbi.nih.gov/guidelines/cvd_ped/summary.htm#chap9 Triglycerides, Fasting 83 mg/dL 07/09/2024 2:09 PM EDT [facility] Comment: For young adults (> 19 years of age)?? Triglycerides: ??<115 mg/dL acceptable, 115 - 149 mg/dL borderline high, greater than or equal to 150 high. For children and adolescents (<= 19 years of age): Triglycerides: ??For 0 - 9 years, <75 mg/dL acceptable, 75-99 mg/dL borderline high, greater than or equal to 100 high. ??For 10 - 19 years, <90 mg/dL acceptable, 90 - 129 mg/dL borderline high, greater than or equal to 130 high. Reference: Expert Panel on Integrated Guidelines for Cardiovascular Health and Risk Reduction in Children and Adolescents: Summary Report. ??[facility] Publication 12- 7486A. January 2012. ??Available online at??http://www.nhlbi.nih.gov/guidelines/cvd_ped/peds_guidelines_sum.pdf or http://www.nhlbi.nih.gov/guidelines/cvd_ped/summary.htm#chap9 HDL Cholesterol, Fasting 37.8 mg/dL 07/09/2024 2:09 PM EDT [facility] Comment: For young adults (> 19 years of age)?? HDL cholesterol: ??<40 mg/dL low, 40 - 45 borderline, greater than 45 mg/dL acceptable.?? For children and adolescents (<= 19 years of age): ? HDL cholesterol: ??<40 mg/dL low, 40 - 45 borderline, greater than 45 mg/dL acceptable.?? Reference: Expert Panel on Integrated Guidelines for Cardiovascular Health and Risk Reduction in Children and Adolescents: Summary Report. ??[facility] Publication 12- 7486A. January 2012. ??Available online at??http://www.nhlbi.nih.gov/guidelines/cvd_ped/peds_guidelines_sum.pdf or http://www.nhlbi.nih.gov/guidelines/cvd_ped/summary.htm#chap9 VLDL Cholesterol 17 mg/dL 07/10/19 25 2:09 PM EDT [facility] LDL Calculated 179 mg/dL 07/09/2024 2:[address] [facility] Chol/HDLC Ratio 6.2 NA 2:[address] [facility] Comment:The desirable Chol/H DL ratio in children is less than or equal to 3.5 Non HDL Chol. (LDL+VLDL) 195.2 mg/dL 07/09/2024 2:[address] [facility] Comment: Non-HDL Cholesterol = Total Chol - HDL Chol For young adults (> 19 years of age)?? Non-HDL cholesterol: ??<150 mg/dL acceptable, 150 - 189 mg/dL borderline high, greater than or equal to 190 mg/dL high.?? For children and adolescents (<= 19 years of age): Non-HDL cholesterol: ??<120 mg/dL acceptable, 120 - 144 mg/dL borderline high, greater than or equal to 145 mg/dL high. Reference: Expert Panel on Integrated Guidelines for Cardiovascular Health and Risk Reduction in Children and Adolescents: Summary Report. ??NIH Publication 12- 7486A. January 2012. ??Available online at??http://www.nhlbi.nih.gov/guidelines/cvd_ped/peds_guidelines_sum.pdf or http://www.nhlbi.nih.gov/guidelines/cvd_ped/summary.htm#chap9 Blood 07/09/2024 8:57 AM EDT 07/09/2024 1:41 PM EDT Agnes Montgomery MD LAB BLOOD ORDERABLES Final R esult Performing Organization Address City/State/[facility] Co de Phone Number [facility] [address] [place] [address], * Ambulatory referral to Genetics (05/25/2024 8:38 AM EST) Agnes Montgomery MD OUTPATIENT REFERRAL ORDERABL ES Final Result * Thyroid peroxidase antibody (05/14/2024 12:19 PM EST) Thyroid Peroxidase Ab 44 <=60 unit/mL 05/14/2024 6:[address] [facility] Blood 05/14/2024 12:1 9 PM EST 05/14/2024 5:42 PM EST Agnes Montgomery MD LAB BLOOD ORDERABLES Final R esult Performing Organization Address City/[facility]/ZIP Co de Phone Number [address] [address], * Vitamin D 25 hydroxy (05/14/2024 12:19 PM EST) Vit D, 25-Hydroxy 32.2 30.0 - 80.0 ng/mL 05/17/2024 10:[address] [facility] Blood 05/14/2024 12:1 9 PM EST 05/14/2024 5:42 PM EST Narrative [facility] - 05/17/2024 10:44 AM EST Deficiency: Less than 20 ng/mL Insufficiency: 20-29 ng/mL Optimum Level: 30-80 ng/mL Possible Toxicity: Greater than 80 ng/mL Agnes Montgomery MD LAB BLOOD ORDERABLES Final R esult Performing Organization Address City/[facility]/ZIP Co de Phone Number [address] [address], * Thyroglobulin Antibodies (05/14/2024 12:19 PM EST) Thyroglobulin 17 <=60 unit/mL 05/14/2024 6:[address] [facility] Blood 05/14/2024 12:1 9 PM EST 05/14/2024 5:42 PM EST Agnes Montgomery MD LAB BLOOD ORDERABLES Final R esult Performing Organization Address City/[facility]/ZIP Co de Phone Number [facility] [address] [place] [address], * (ABNORMAL) TSH (05/14/2024 12:19 PM EST) Thyroid Stimulating Hormone 0.224(L) 0.700 - 5.700 mcunit/mL 05/14/2024 6:18 PM EST [facility] Blood 05/14/2024 12:1 9 PM EST 05/14/2024 5:42 PM EST Agnes Montgomery MD LAB BLOOD ORDERABLES Final R esult Performing Organization Address City/[facility]/ZIP Co de Phone Number [facility] [address] [place] [address], [place] [phone] * T4, free (05/14/2024 12:19 PM EST) Free T4 1.83 0.80 - 1.90 ng/dL 05/14/2024 6:18 PM EST [facility] Blood 05/14/2024 12:1 9 PM EST 05/14/2024 5:42 PM EST Agnes Montgomery MD LAB BLOOD ORDERABLES Final R esult Performing Organization Address City/[facility] Co de Phone Number [facility] [address] [place] [address], [place] [phone] from Last 3 Months Insurance O Care Teams Counter Intelligence Technician Relationship Specialty Start Date End Date Agnes Montgomery MD [address] [place] [phone] PCP - General Pediatrics 07/11/17 Nancie Quach [address] [place] [address]. Perforator Loader/[facility] 09/03/17
--- OUTSIDE RECORDS SUMMARY | 2024-08-06 14:59 | XMS_ITS | Encounter Summary ---
Author Organization [facility]ly [facility] Address [address] [facility] [address] [place] [phone] Phone Care Team Providers Care Bridge Gang Worker Name Role Phone Agnes Montgomery MD Primary Care Provi chelsey Reason for Visit * Reason Onset Date Comments Medication Refill 12/23/2018 Encounter Details Date Type Department Care Team (Late Contact Info) Description 12/23/2018 Telephone [facility] [address] [place] [address] Luli Kirk MD [address] [place] [address] [email or web address] Medication Refill Social History Tobacco Use Types Packs/Day Years Used Date Smoking Tobacco: Never Smokeless Tobacco: Never Sex and Gender Information Value Date Recorded Sex Assigned at Female 04/16/2021 2:14 PM EST Gender Identity Non-binary 04/16/2021 2:14 PM EST Sexual Orientation Lesbian or [place] 04/16/2021 2: 14 PM EST documented as of this encounter Plan of Treatment Upcoming Encounters Date Type Department Care Team (Late st Contact Info) Description 09/09/2024 1:00 PM EDT Office Visit [facility] [address] [place] [address] Sheila Arana OD [address] [place] [address] 09/27/2024 8:30 AM EDT Office Visit [facility] [address] [place] [address] Letha Livingston MD [address] [place] [address] [email or web address] 04/11/2025 1:15 PM EST Office Visit [facility] [address] [place] [address] Cass Alberts OD [address] [place] [address] documented as of this encounter Visit Diagnoses Not on filedocumented in this encounter Care Teams Bridge Gang Worker Relationship Specialty Start Date End Date Agnes Montgomery MD [address] [facility] [address] [place] [address] PCP - General Pediatrics 12/31/16 documented as of this encounter Additional Source Comments The information contained in this document represents components of the legal health record. It is not the complete legal health record.[facility]
--- OUTSIDE RECORDS SUMMARY | 2024-08-06 14:59 | XMS_ITS | Clinical Summary ---
Author Organization [facility] [place] [address] Care Team Providers Care [facility] Worker Name Role Phone Unavailable Primary Care Provider Unavailabl e Social History Tobacco Use Types Packs/Day Years Used Date Smoking Tobacco: Never Assessed Sex and Gender Information Value Date Recorded Sex Assigned at Not on file Gender Identity Not on file Sexual Orientation Not on file Plan of Treatment Health Maintenance Due Date Last Done Comments Chlamydia Screening 09/03/2019 HPV vaccine (1 - 3-dose series) 09/03/2019 HIV screen 2022 Hepatitis C Screening 2022 Hepatitis B vaccine (0-59 yrs) and Risk (1) 09/03/2023 Tetanus/Diphtheria/Pertussis Vaccines (1 - Tdap) 09/02 Covid-19 Vaccine (1 - 2023- season) 2023 Influenza (Flu) vaccine (1 o f 1 - Influenza standard series) 12/21/2023
--- OUTSIDE RECORDS SUMMARY | 2024-08-06 14:59 | XMS_ITS | Clinical Summary ---
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 749864864 (SNOMED CT) 05/11 Active 05/11 Tonya Fay MD Keratoconjuncti vitis sicca DYSMENORRHE A IN ADOLESCENT 696237662 (SNOMED CT) 05/13 Active 05/14 Taniasyeda Joaquin CNM Dysmenorrhea IRREGULAR MENSTRUAL BLEEDING 78901672 (SNOMED CT) 05/13 Inactive 05/13 Tania Capello CNM Irregular periods REFRACTIVE ERROR H52.7 (ICD-10-CM ) 10/13 Active 10/13 Erica Chester MD Unspecified disorder of refraction DRY EYE SYNDROME 90725696 (SNOMED CT) 10/13 Active 10/13 Erica Chester MD Tear film insufficiency YVES POSITIVE 626707930 (SNOMED CT) 10/13 Active 10/13 Erica Chester MD Anti-nuclear factor detected ARTHRITIS 7158643 (SNOMED CT) 10/13 Active 10/13 Erica Chester MD Arthritis Medications Medication Instructions Start Date Stop Date Generic Name NDC Provider CYCLOSPORINE 0.05 % EMUL Instill 1 drop into both eyes twice a day 05/11 cyclosporine 82117931226 Tonya Fay MD BUSPIRONE HCL 5 MG TABS 05/11 buspirone 76083201736 Sherry ROJAS albuterol sulfate 05/11 albuterol sulfate Sherry ROJAS control 05/11 control Sherry ROJAS TGT CALCIUM DIETARY SUPPLEMENT TABLET CHEWABLE 05/11 TGT CALCIUM DIETARY SUPPLEMENT TABLET CHEWABLE Sherry ROJAS hydroxyzine HCl 05/11 hydroxyzine HCl Sherry ROJAS VESTURA 3-0.02 MG TABS Take 1 tablet by mouth once a day 05/11 drospirenone-ethi nyl estradiol 27050947320 Sherry ROJAS clonidine HCl 05/11 clonidine HCl Sherry ROJAS NORETHINDRONE ACETATE 5 MG TABS norethindrone acetate 17479826102 Sherry ROJAS CLONIDINE HCL ER 0.1 MG [id number] clonidine hcl 25254900392 Soraida ROJAS HYDROXYZINE HCL 25 MG TABS hydroxyzine hcl 02108706209 Sherry ROJAS HYDROXYZINE HCL 50 MG TABS hydroxyzine hcl 41439664166 Sherry ROJAS MELOXICAM 15 MG TABS meloxicam 62339136720 Sherry ROJAS BUSPIRONE HCL 7.5 MG TABS buspirone 28816951476 Sherry ROJAS IBUPROFEN 600 MG TABS Take 1 tablet by mouth every six hours as directed take with food. Take on days 1 and 2 of cycle. ibuprofen 23956769182 Tania Hobbsllo CNM OCELLA 3-0.03 MG TABS Take 1 tablet by mouth once a day as directed 07/05 drospirenone-ethi nyl estradiol 71313912203 Tania Capello CNM VESTURA 3-0.02 MG TABS Take 1 tablet by mouth once a day drospirenone-ethi nyl estradiol 70644050641 Tania Hobbsllo CNM clonidine HCl clonidine HCl Amal iena Phonesavanh control control Amal iena Phonesavanh hydroxyzine HCl hydroxyzine HCl Amaliena Phonesavanh albuterol sulfate albuterol sulfate Amalien a Phonesavanh LAMICTAL 25 MG TABS lamotrigine 57218376665 Sarah Oswald CONCERTA 18 MG CR-TABS methylphenidate hcl 26967406985 Sarah ROJAS BUSPIRONE HCL 5 MG TABS buspirone 48240548730 Sarah ROJAS MELATONIN 5 MG TABS melatonin 04256789645 Norah Cota OCELLA 3-0.03 MG TABS Take 1 tablet by mouth once a day as directed drospirenone-ethi nyl estradiol 21980805886 Tania Bustamanteo CNM omeprazole omeprazole Jocelynn [place] VITAMIN D TABLET CHOLECAL CIFEROL TABS 07746115101 David Pereyra MD CALCIUM TABS CALCIUM TABS 76034019775 Erica Chester MD [facility] MELATONIN TABS MELATONIN TABS 57974923607 Erica Chester MD TGT CALCIUM DIETARY SUPPLEMENT TABLET CHEWABLE CALCIUM CARBONATE-VITAMIN D CHEW 53235595924 Sarah ROJAS BUSPIRONE HCL TABS BUSPIRONE HCL TABS 51726087694 Sarah ROJAS LAMICTAL TABS LAMOTRIGINE TABS 070101062 02 Sarah ROJAS CONCERTA CR-TABS METHYLPH ENIDATE HCL CR-TABS 43069864477 Sarah ROJAS Medications Administered No information available. Allergies, Adverse Reactions, Alerts Allergy Name Reaction Description Start Date Severity Statu s Provider OXYCODONE Nausea / Shaking / Facial redness Severe Tonya Trudy Fay MD Results Date Name Value Unit Range Flag Description Replaced Document: (P) 17-HY DROXYPROGESTERONE / LOC:COBLAB, TESTOSTERONE, TOTAL ... T3, TOTAL 152.7 ng/dL 60.0-181. 0 Triiodothyronine (T3) [Mass/volume] in Serum or Plasma PROGESTERONE 1.03 ng/mL progeste bairon, serum T4, FREE 1.59 ng/dL 0.83-1.43 H Thyroxine (T4) free [Mass/volume] in Serum or Plasma TSH ULTRA 0.31 u[iU]/mL 0.463-3.9 8 L thyroid stimulating hormone (TSH), ultra sensitive PROLACTIN 3.4 ng/mL Prolactin [ Mass/volume] in Serum or Plasma LH 10.9 m[iU]/mL Lutropin [Un its/volume] in Serum or Plasma FSH 6.5 m[iU]/mL Follitropin [Moles/volume] in Serum or Plasma ESTRADIOL 57.1 pg/mL estradiol, serum DHEA-S 393.1 ug/dL dehydroepiand rosterone sulfate, serum IRON 109 ug/dL 21-120 Iron [Mass/vo lume] in Serum or Plasma MPV 8.1 UM*3 fL 7.4-10.4 Platelet me an volume [Entitic volume] in Blood by Taylor RDW 12.1 % 11.5-14.5 Erythrocyte distribution width [Ratio] by Automated count MCHC 34.2 G/DL % 31.9-35.0 MCHC [Mas s/volume] by Automated count MCH 29.7 pg 25.0-35.0 MCH [Entiti c mass] by Automated count MCV 86.6 fL 80.0-100. 0 MCV [Entitic volume] by Automated count PLATELETS 377 10*3/mm3 150-450 Platelets [#/volume] in Blood by Automated count HCT 44.9 % 36.0-46.0 Hematocrit [Volume Fraction] of Blood by Automated count HGB 15.4 g/dL 12.0-16.0 Hemoglobin [Mass/volume] in Blood RBC 5.18 10*6/mm3 4.10-5.10 H Erythrocyt es [#/volume] in Blood by Automated count WBC 8.5 10*3/mm3 4.5-13.0 Leukocytes [#/volume] in Blood by Automated count 17 OH PROG_ 41 ng/dL 23-300 17-hydrox yprogesterone Lab Report: 17-HYDROXYPROGES TERONE / LOC:COBLAB, TESTOSTERONE, TOTAL AND ... TESTO, TOTAL 39 ng/dL <=40 Testoste bairon [Mass/volume] in Serum or Plasma Plan of Care Type Date Detail Pending order Patient encounte r procedure Pending order Patient encounte r procedure Pending order Return to Clinic Pending order Total T3 Pending order Free T4 Pending order Prolactin Pending order 17-Hydroxyproges terone Pending order FSH (Follicle St imulating Hormone) Pending order Iron Pending order LH (Luteinizing Hormone) Pending order Patient encounte r procedure Pending order Thyroid Stimulat ing Hormone Pending order Testosterone, Fr ee & Total Pending order Estradiol Pending order Testosterone, To loyd Pending order CBC No Different ial Pending order Progesterone Pending order Dehydroepiandros terone Sulfate Procedures Code Procedure Name Date Entry Date CPT-85527 Est Pt - Comprehensive Eye Exam 1 CPT-79007 Refraction CPT-51807 Est Pt - Comprehensive Eye Exam 1 CPT-07240 Est Pt - Comprehensive Eye Exam 2 [id number] Patient encounter procedure CPT-23616 Est Pt - Comprehensive Eye Exam 7 RTC Return to Clinic [id number] Patient encounter procedure RTC Return to Clinic CPT-33392 New Pt - Comprehensive Eye Exam 5 Vital Signs Date Name Value Unit Description BMI (Body Mass Index) 23.82 kg/m2 Bod y Mass Index (Ratio) BP Diastolic 82 mm[Hg] blood pressu re, diastolic BP Systolic 118 mm[Hg] blood pressur e, systolic Weight Measured 134 [lb_av] weight E& M Height 63 [in_us] height E&M Immunizations No information available. Advance Directives No information available.
--- OUTSIDE RECORDS SUMMARY | 2024-08-06 14:59 | XMS_ITS | Encounter Summary ---
Author Organization [facility] Address [address] [place] [address] Phone Care Team Providers Care Dispatcher Radio Name Role Phone Agnes Montgomery MD Primary Care Provider [phone] Agnes Montgomery MD Unavailable + 2 Agnes Montgomery MD Unavailable + 2 Agnes Montgomery MD Unavailable + [phone] Jennifer Hill MD Unavailable + 8 Yesy Rahman MD Unavailable + [phone] Reason for Referral * Cardiac Stress Testing (Routine) - Pending Review Specialty Diagnoses / Procedures Referred By Seamus gu Referred To Contact Pediatric Cardiology Diagnoses Multifocal PVCs Procedures Holter Monitor - Mail Out KS EXTERNAL ECG SCANNING ANALYSIS REPORT KS XTRNL ECG & 48 HR RECORDING KS XTRNL ECG & 48 HR RECORD SCAN STOR W/R&I KS ARTHRODESIS POSTERIOR SPINAL DFRM 13/> VRT SEG KS XTRNL ECG CONTINUOUS RHYTHM W/I&R UP TO 48 HRS KS XTRNL PT ACTIVATED ECG RECORD MONITOR 30 DAYS KS EXTERNAL ECG REC>7D<15D RECORDING KS EXTERNAL ECG REC>7D<15D SCANNING MARCOS W/REPORT KS EXTERNAL ECG REC>7D<15D SCAN MARCOS REPORT R&I KS EXTERNAL ECG REC>48HR<7D RECORDING KS EXTERNAL ECG REC>48HR<7D SCANNING MARCOS W/REPORT KS EXTERNAL ECG REC>48HR<7D SCAN MARCOS REPORT R&I KS EXTERNAL ECG REC>7D<15D [employer]VIEW [employer] INTERPRETATION Justin Dennis CNP [address] [place] [address] Phone: tel: fax: Referral ID Status Reason Start Date Expiration Date V isits Requested Visits Authorized [id number] Pending Review 12/15/2023 12/14/2024 1 1 Encounter Details Date Type Department Care Team (Late st Contact Info) Description 12/15/2023 Orders Only [facility] [address] [place] [phone] Justin Dennis CNP [address] [place] [address] Multifocal PVCs (Primary Dx) Social History Tobacco Use Types [...] Info) Description 08/13/2024 3:00 PM EDT Appointment [facility] [address] [place] [phone] 08/25/2024 5:00 PM EDT Appointment [facility] [address] [place] [phone] Milind Ac MD [address] [place] [address] 09/09/2024 3:00 PM EDT Consult [facility] [address] [place] [phone] Juan Barreto MD [address] [place] [address] 05/24/2025 8:00 AM EST Telemedicine [facility] [address] [place] [phone] Kanwal Laguerre CNP [address] [place] [address] documented as of this encounter Results * HOLTER MONITOR 48 HOUR - MAIL OUT (12/15/2023 2:05 PM EDT) Anatomical Region Laterality Modality Heart Other 12/29/2023 Narrative 12/30/2023 2:28 PM EDT 2 days of analyzed data. Predominantly normal sinus rhythm with age-appropriate activity-related and circadian variability. Normal sinus node function with no prolonged pauses. Normal AV node function with no AV block. No significant supraventricular ectopy. No significant ventricular ectopy. Patient trigger events correspond with sinus rhythm. Werner Beard MD Justin Dennis PAPER STACKER [facility] PROCEDURE S Final Result documented in this encounter Visit Diagnoses Diagnosis Multifocal PVCs- Primary Other premature beats Multifocal PVCs Other premature beats documented in this encounter Care Teams Dispatcher Radio Relationship Specialty Start Date End Date Agnes Montgomery MD [address] [place] [address] PCP - General 08/27/23 Agnes Montgomery MD [address] [place] [address] PCP - Insurance Identified PCP 09/05/23 Agnes Montgomery MD [address] [place] [id number] PCP - Insurance PCP 08/21/17 Agnes Montgomery MD [address] [address] PCP - Clinical PCP 01/08/17 Jennifer Hill MD [address] [place] [address] HC Topper Press Operator 09/20/23 05/06/24 Yesy Rahman MD [address] [place] [address] Consulting Physician Pediatric Cardiology 05/07/24 documented as of this encounter
--- OUTSIDE RECORDS SUMMARY | 2024-08-06 15:00 | XMS_ITS | Encounter Summary ---
Author Organization [facility] Address [address] [place] [address] Phone Care Team Providers Care Cattle Dipper Name Role Phone Agnes Montgomery MD Primary Care Provider Agnes Montgomery MD Unavailable [phone] Agnes Montgomery MD Unavailable [phone] Agnes Montgomery MD Unavailable [phone] Yesy Rahman MD Unavailable [phone] Encounter Details Date Type Department Care Team (Late Contact Info) Description 07/21/2024 Results Follow-Up [address] [phone] Justin Dennis, AMM[employer]ITION STOREKEEPER [address] [place] [address] Social History Tobacco Use Types Packs/Day Years [...] Info) Description 08/13/2024 3:00 PM EDT Appointment [facility] [address] [place] [phone] 08/25/2024 5:00 PM EDT Appointment [facility] [address] [place] [phone] Milind Ac MD [address] [place] [address] 09/09/2024 3:00 PM EDT Consult [facility] [address] [place] [phone] Juan Barreto MD [address] [place] [address] 05/24/2025 8:00 AM EST Telemedicine [facility] [address] [place] [phone] Kanwal Laguerre CNP [address] [place] [phone] documented as of this encounter Visit Diagnoses Not on filedocumented in this encounter Care Teams Cattle Dipper Relationship Specialty Start Date End Date Agnes Montgomery MD [address] [place] [address] PCP - General 08/27/23 Agnes Montgomery MD [address] [place] [phone] PCP - Insurance Identified PCP 09/05/23 Agnes Montgomery MD [address] [place] [id number] PCP - Insurance PCP 08/21/17 Agnes Montgomery MD [address] [place] [phone] PCP - Clinical PCP 01/08/17 Yesy Rahman MD [address] [place] [address] Consulting Physician Pediatric Cardiology 05/07/24 documented as of this encounter
--- OUTSIDE RECORDS SUMMARY | 2024-08-06 15:00 | XMS_ITS | Clinical Summary ---
Author Organization [facility] spital Address [address] [place] [address] Phone Care Team Providers Care Clinical Editor Name Role Phone Agnes Montgomery MD Primary Care Provider Agnes Montgomery MD Unavailable [phone] Agnes Montgomery MD Unavailable [phone] Agnes Montgomery MD Unavailable [phone] Yesy Rahman MD Unavailable [phone] Allergies Active Allergy Reactions Criticality Noted Date Comments Yeni 06/28/2022 Reaction Type from PowerChart: Allergy; Escitalopram 11/29/2021 prolonged-QT interval Hydromorphone Palpitations,Anxiety Low 06/08/2022 Oxycodone 12/02/2021 Reaction Type from PowerChart: Allergy; Medications * This document contains information received from the source organization and may not represent a complete record from that organization. busPIRone (Buspar) 15 mg tablet Take 10 mg by mouth 2 times a day. 0 Active cloNIDine ER (Kapvay) 0.1 mg tablet extended release 12 hr 12 hr tablet Take 1 tablet by mouth every morning. 0 Active LaMICtal (BRAND MEDICALLY NECESSARY) 100 mg tablet Take 1 tablet by mouth 1 time each day. 0 Active mv-min/iron/folic /calcium/vitK (WOMEN'S MULTIVITAMIN ORAL) Take by mouth 1 time each day. 4 Active meloxicam (Mobic) 15 mg tablet Take 15 mg by mouth if needed. 3 Active LORazepam (Ativan) 0.5 mg tablet Take 0.5 mg by mouth if needed. 1 Active levalbuterol (Xopenex) 45 mcg/actuation inhalerIndication s:Multifocal PVCs Inhale 2 puffs every 6 hours if needed for wheezing. 15 g 11 4 025 Active flecainide (Tambocor) 100 mg tabletIndications :Ventricular extrasystoles Take 100 mg = 1 tablet by mouth every 12 hours. 180 tablet 3 4 025 Active methylphenidate HCl (methylphenidate ER) 27 mg extended release tablet Take 27 mg by mouth every morning. Do not crush, chew. The patient may request a lesser amount be dispensed than what was prescribed. Active calcium citrate malate-vit D3 250 mg-2.5 mcg (100 unit) tablet Take 1 tablet by mouth 1 time each day. 8 Active cholecalciferol (Vitamin D-3) 50 MCG (2000 UT) tablet Take 20 mcg by mouth 1 time each day. Active Procto-Med HC 2.5 % rectal cream Insert 1 Application into the rectum if needed. 4 Active melatonin 3 mg tablet Take 6 mg by mouth at bedtime. Active norethindrone (Aygestin) 5 mg tabletIndications :Pelvic pain in female Take 7.5 mg = 1.5 tablets by mouth 1 time each day. 135 tablet 3 4 025 Active metoprolol succinate XL 50 mg 24 hr tabletIndications :Elevated blood pressure reading without diagnosis of hypertension Take 50 mg = 1 tablet by mouth every morning. Do not crush or chew. 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 Normal heart rate ranges for age 52-159bpm. Total 4.4% polymorphic ventricular ectopy with 180 couplets, 4 runs longest 4 beats at most 114bpm. No significant atrial ectopy. No pauses or AV block. Ambulatory rhythm monitor performed 06/08/23: on methylphenidate 6+ days of interpretable data. Normal heart rate ranges for age 56-182bpm with daytime average elevated to 103bpm. total 6% polymorphic ventricular ectopy with 4200 couplets and 146 runs longest 3 beats at most 141bpm. Last echo June 2023: Summary: Frequent premature ventricular contractions noted. Mild baseline sinus tachycardia also noted. Normal valve function. Normal biventricular function. 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 Symptomatic, with treatment priority suppression of palpitations. Encounters Date Type Department Care Team Description 07/21/2024 Results Follow-Up [facility] [address] [place] [phone] Justin Dennis CNP 07/14/2024 9:55 AM EDT - 07/14/2024 11:59 PM EDT Hospital Encounter [facility] [address] [place] [address] Elevated blood pressure reading without diagnosis of hypertension Discharge Disposition: Home 07/13/2024 Results Follow-Up [facility] [address] [place] [address] Justin Dennis CNP 07/09/2024 8:50 AM EDT [facility] [address] [place] [address] Pure hypercholesterolemia, unspecified 07/09/2024 Travel 07/02/2024 Orders Only [facility] [address] [place] [address] Milind Ac MD Ventricular extrasystoles (Primary Dx); Multifocal PVCs 06/29/2024 - 06/29/2024 11:59 PM EDT Hospital Encounter [facility] [address] [place] [address] Extrasystoles, ventricular Discharge Disposition: Home 06/27/2024 Lab Requisition [facility] [address] [place] [phone] Agnes Montgomery MD Pure hypercholesterolemia, unspecified 05/25/2024 8:00 AM EST Telemedicine [facility] [address] [place] [phone] [place], Kanwal L, WILDLIFE FORENSIC GENETICIST Generalized hypermobility of joints (Primary Dx); Genetic testing; Autism spectrum disorder 05/14/2024 12:10 PM EST [facility] [address] [place] [phone] Other specified abnormal findings of blood chemistry 05/14/2024 Travel from Last 3 Months Immunizations Immunization Administration Dates Next Due Pfizer Purple Cap SARS-CoV-2 04/18/2021 Family History Medical History Relation Name Comments No Known Problems Father Diabetes type II Mother Polycystic ovary syndrome Mother Hypothyroidism Paternal Grandfather Relation Name Status Comments Father Mother Paternal Grandfather Social History Tobacco Use Types Packs/Day Years Used Date Smoking Tobacco: Unknown Passive Smoke Exposure: Never Tobacco Cessation:Counseling Given: Not Answered Comments Unknown Sex and Gender Information Value Date Recorded Sex Assigned at Female 11/18/2023 2:52 PM EDT Legal Sex Female 12:58 AM EDT Gender Identity Not on file Sexual Orientation Not on file Last Filed Vital Signs Vital Sign Reading Time Taken Comments Blood Pressure 149/70 01/30/2024 3:42 PM EDT Pulse 106 01/30/2024 3:42 PM EDT Temperature 36.6 ??C (97.9 ??F) 12/17/2023 1:23 PM ED T Respiratory Rate 20 11/19/2023 3:26 PM EDT Oxygen Saturation 100% 01/30/2024 3:42 PM EDT Inhaled Oxygen Concentration - - Weight 69.2 kg (152 lb 8.9 oz) 01/30/2024 3:42 P M EDT Height 159.6 cm (5' 2.84 ) 01/30/2024 3:42 PM ED T Body Mass Index 27.17 01/30/2024 3:42 PM EDT Plan of Treatment Upcoming Encounters Date Type Department Care Team (Late st Contact Info) Description 08/13/2024 3:00 PM EDT Appointment [facility] [address] [place] [phone] 08/25/2024 5:00 PM EDT Appointment [facility] [address] [place] [phone] Milind Ac MD [address] [place] [address] 09/09/2024 3:00 PM EDT Consult [facility] [address] [place] [phone] Juan Barreto MD [address] [place] [address] 05/24/2025 8:00 AM EST Telemedicine [facility] [address] [place] [phone] Kanwal Laguerre CNP [address] [place] [address] Health Maintenance Due Date Last Done Comments HIV Screening 2004 Hepatitis C Screening 2022 DTaP/Tdap/Td Vaccines (7 - Td or Tdap) 10/25/2033 10/26/2023, 11/02/2015, 08/24/2008, Additional history exists Pneumococcal Vaccine: Pediatrics (0 to 5 Years) and At-Risk Patients (6 to 49 Years) Aged Out 09/06/2005, 03/05/2005, 01/03/2005, Additional history exists No longer eligible based on patient's age to complete this topic Hepatitis A Vaccines Completed 09/03/2006, 09/07/19 IPV Vaccines Completed 09/03/2008, 02/19, 01/03/2005, Additional history exists MMR Vaccines Completed 09/13/2008, 09/06/2005 Varicella Vaccines Completed 09/13/2008, 09/06/2005 Hepatitis B Vaccines Completed 08/29/2017, 12/04/2005, 2004, Additional history exists HPV Vaccines Completed 09/24/2017, 09/09/2016 Meningococcal Vaccine Completed 10/05/2020 , 08/29/2017, 11/02/2015 Meningococcal B Vaccine Completed 11/24/2020, 10/05 COVID-19 Vaccine Completed 02/13/2024, , 04/18/2021, Additional history exists Influenza Vaccine Completed 02/13/2024, , 12/30/2019, Additional history exists HIB Vaccines Aged Out No longer eligi ble based on patient's age to complete this topic Rotavirus Vaccines Aged Out No longer eligible based on patient's age to complete this topic Medical Devices Implanted Type Area Mobile Home Servicer Device Identifier Shelf Expiration Date Model / Serial / Lot [employer] Micro Suture Slaton 6.5mm Implanted:Qty: 1 on 08/27/2023 by Ethan Sheriff MD Slaton Right: Hand 01/18/2025 / / [id number] Procedures Procedure Name Priority Date/Time Associated Diagnosis Comments 24 HOUR BLOOD PRESSURE MONITOR Routine 07/14/2024 9:55 AM EDT Elevated blood pressure reading without diagnosis of hypertension LIPID PANEL Routine 07/09/2024 8:57 AM EDT Pure hypercholesterolemia , unspecified THYROID STIMULATING HORMONE Routine 05/14/2024 12:19 PM EST Other specified abnormal findings of blood chemistry T4 FREE Routine 05/14/2024 12:19 PM EST Other specified abnormal findings of blood chemistry THYROID PEROXIDASE ANTIBODY Routine 05/14/2024 12:19 PM EST Other specified abnormal findings of blood chemistry LIPID PANEL Routine 05/14/2024 12:19 PM EST Other specified abnormal findings of blood chemistry ANTI-THYROGLOBULIN AB Routine 05/14/2024 12:19 PM EST Other specified abnormal findings of blood chemistry VITAMIN D 25-HYDROXY Routine 05/14/2024 12:19 PM EST Other specified abnormal findings of blood chemistry from Last 3 Months Results * 24 HOUR BLOOD PRESSURE MONITOR (07/14/2024 9:55 AM EDT) Anatomical Region Laterality Modality Heart Other 07/07/2024 9:34 PM EDT Narrative 07/21/2024 10:15 AM EDT Table formatting from the original result was not included. Ambulatory Blood Pressure Report ??Patient Stage 1 Stage 2 24-hour Mean ??112/68 125/75 130/80 Daytime Mean ??114/71 130/80 135/85 Nighttime Mean ??105/61 110/65 120/70 Diurnal Variation Systolic Diastolic 7% 13% ?? The duration of testing and number of readings were Sufficient for this study. The mean 24-hour systolic ambulatory blood pressure fell within the normal range. The mean 24-hour diastolic blood pressure fell within the normal range. During the day, the mean systolic ambulatory blood pressure fell within the normal range. The mean daytime diastolic blood pressure fell within the normal range. During the night, the mean systolic ambulatory blood pressure fell within the normal range. The mean nighttime diastolic blood pressure fell within the normal range. Diurnal variation of the systolic and diastolic blood pressure was blunted. Diurnal variation of the diastolic blood pressure was normal. Interpretation Mean ambulatory blood pressure levels fell within the normal range during the 24-hour period, day, and night. Providers should review these results in the context of the patient. MD Corina Khan DO Msc Pediatric Cardiology References Juan HadleyT, Vinod EM, Carlos Enrique TM, Jean Pierre C, Sam SR, Francisco LL, Koffi M, Briones A, Estuardo PRASANTH, Atherosclerosis H, Obesity in the Young Committee of the [employer] [place] on Lifelong Congenital Heart D, Heart Health in the Y, [place] on Cardiovascular R, Intervention, [place] on E, Prevention, [place] on H, [place] on L and Cardiometabolic H. Ambulatory Blood Pressure Monitoring in Children and Adolescents: 2021 Update: A Scientific Statement From the [employer]. Hypertension. 202;79:q861-w721. Vitohl et al. Distribution of 24-h ambulatory blood pressure in children: normalized reference values and role of body dimensions. J of Htn. 2002;20:0429-1800. Juan et al. Clinical Practice Guideline for Screening and Management of High Blood Pressure in Children and Adolescents. Pediatrics. 2017;140. Justin Dennis WILDLIFE FORENSIC GENETICIST [facility] PROCEDURE S Final Result * LIPID PROFILE, FASTING (TOTAL CHOL, HDL, TRIG) (07/09/2024 8:57 AM EDT) Only the most recent of2 resultswithin the time period is included. [facility] Cholesterol, Fasting 233 mg/dL 07/09/2024 2:09 PM EDT [facility] Comment: For young adults (> 19 years [...] Reduction in Children and Adolescents: Summary Report. ??[facility] Publication 12- 7486A. January 2012. ??Available online at??http://www.nhlbi.nih.gov/guidelines/cvd_ped/peds_guidelines_sum.pdf or http://www.nhlbi.nih.gov/guidelines/cvd_ped/summary.htm#chap9 Triglycerides, Fasting 83 mg/dL 07/09/2024 2:09 PM EDT [facility] Comment: For young adults (> 19 years [...] Reduction in Children and Adolescents: Summary Report. ??[facility] Publication 12- 7486A. January 2012. ??Available online at??http://www.nhlbi.nih.gov/guidelines/cvd_ped/peds_guidelines_sum.pdf or http://www.nhlbi.nih.gov/guidelines/cvd_ped/summary.htm#chap9 HDL Cholesterol, Fasting 37.8 mg/dL 07/09/2024 2:09 PM EDT [facility] Comment: For young adults (> 19 years [...] Reduction in Children and Adolescents: Summary Report. ??[facility] Publication - 7486A. January 2012. ??Available online at??http://www.nhlbi.nih.gov/guidelines/cvd_ped/peds_guidelines_sum.pdf or http://www.nhlbi.nih.gov/guidelines/cvd_ped/summary.htm#chap9 VLDL Cholesterol 17 mg/dL 07/10/19 25 2:09 PM EDT [facility] LDL Calculated 179 mg/dL 07/09/2024 2:09 PM EDT [facility] Chol/HDLC Ratio 6.2 2:09 PM EDT [facility] Comment:The desirable Chol/H DL ratio in children is less than or equal to 3.5 Non HDL Chol. (LDL+VLDL) 195.2 mg/dL 07/09/2024 2:09 PM EDT [facility] Comment: Non-HDL Cholesterol = Total Chol - [...] Reduction in Children and Adolescents: Summary Report. ??[facility] Publication - 7486A. January 2012. ??Available online at??http://www.nhlbi.nih.gov/guidelines/cvd_ped/peds_guidelines_sum.pdf or http://www.nhlbi.nih.gov/guidelines/cvd_ped/summary.htm#chap9 Blood Venipuncture / Unknown 07/09/2024 8:57 AM EDT 07/09/2024 8:57 AM EDT us Agnes Montgomery MD LAB BLOOD ORDERABLES Final Result [address] [address], * Thyroperoxidase Autoantibody (05/14/2024 12:19 PM EST) Thyroid Peroxidase Ab 44 <=60 unit/mL 05/14/2024 6:15 PM EST [facility] Blood Venipuncture / Unknown 05/14/2024 12:19 PM EST 05/14/2024 12:19 PM EST Agnes Montgomery MD LAB BLOOD ORDERABLES Final Result Performing Organization Address [facility] [place] [address], * 25-Hydroxy Vitamin D (05/14/2024 12:19 PM EST) Vit D, 25-Hydroxy 32.2 30.0 - 80.0 ng/mL 05/17/2024 10:44 AM EST [facility] Blood Venipuncture / Unknown 05/14/2024 12:19 PM EST 05/14/2024 12:19 PM EST Narrative [facility] - 05/17/2024 10:44 AM EST Deficiency: Less than 20 ng/mL Insufficiency: 20-29 ng/mL Optimum Level: 30-80 ng/mL Possible Toxicity: Greater than 80 ng/mL Agnes Montgomery MD LAB BLOOD ORDERABLES Final Result Performing Organization Address [facility]/ZIP Co de Phone Number [address] [address], * Thyroglobulin Antibody (05/14/2024 12:19 PM EST) Anti-thyroglobu cody antibody 17 <=60 unit/mL 05/14/2024 6:15 PM EST [facility] Blood Venipuncture / Unknown 05/14/2024 12:19 PM EST 05/14/2024 12:19 PM EST us Agnes Montgomery MD LAB BLOOD ORDERABLES Final Result Performing Organization Address [facility]/State/ZIP Co de Phone Number [facility] [address] [place] [address], [place] [phone] * (ABNORMAL) Thyroid Stimulating Hormone (05/14/2024 12:19 PM EST) Thyroid Stimulating Hormone 0.224(L) 0.700 - 5.700 mcunit/mL 05/14/2024 6:18 PM EST [facility] Blood Venipuncture / Unknown 05/14/2024 12:19 PM EST 05/14/2024 12:19 PM EST us Agnes Montgomery MD LAB BLOOD ORDERABLES Final Result Performing Organization Address [facility]/ZIP Co de Phone Number [facility] [address] [place] [address], [place] [phone] * Thyroxine (T4), Free (05/14/2024 12:19 PM EST) Free T4 1.83 0.80 - 1.90 ng/dL 05/14/2024 6:18 PM EST [facility] Blood Venipuncture / Unknown 05/14/2024 12:19 PM EST 05/14/2024 12:19 PM EST Agnes Montgomery MD LAB BLOOD ORDERABLES Final Result Performing Organization Address [facility]/ZIP Co de Phone Number [address] [address], [place] [phone] from Last 3 Months Insurance Advance Directives For more information, please contact: [phone] (Available ) Documents on File Type Date Recorded Patient Tax Intern Expl anation Advance Directives and Livin g Will 11/20/2023 9:22 PM Advance Directives and Livin g Will 11/19/2023 3:56 PM Care Teams Clinical Editor Relationship Specialty Start Date End Date Agnes Montgomery MD [address] [place] [address] PCP - General 08/27/23 Agnes Montgomery MD [address] [place] [address] PCP - Insurance Identified PCP 09/05/23 Agnes Montgomery MD [address] [place] [address] PCP - Insurance PCP 08/21/17 Agnes Montgomery MD [address] [place] [address] PCP - Clinical PCP 01/08/17 Yesy Rahman MD [address] [place] [phone] Consulting Physician Pediatric Cardiology 05/07/24
--- OUTSIDE RECORDS SUMMARY | 2024-08-06 15:00 | XMS_ITS | Encounter Summary ---
Author Organization [facility] spital Address [address] [place] [address] Phone Care Team Providers Care Silverware Buffer Name Role Phone Agnes Montgomery MD Primary Care Provider Agnes Montgomery MD Unavailable [phone] Agnes Montgomery MD Unavailable [phone] Agnes Montgomery MD Unavailable [phone] Jennifer Hill MD Unavailable [phone] Yesy Rahman MD Unavailable [phone] Encounter Details Date Type Department Care Team (Late st Contact Info) Description 09/25/2023 Orders Only [facility] [address] [place] [address] Norah Jorge, OT [address] [place] [address] Social History Tobacco Use Types Packs/Day Years [...] Info) Description 08/13/2024 3:00 PM EDT Appointment [facility] [address] [place] [phone] 08/25/2024 5:00 PM EDT Appointment [facility] [address] [place] [phone] Milind Ac MD [address] [place] [address] 09/09/2024 3:00 PM EDT Consult [facility] [address] [place] [phone] Juan Barreto MD [address] [place] [address] 05/24/2025 8:00 AM EST Telemedicine [facility] [address] [place] [phone] Kanwal Laguerre CNP [address] [place] [phone] documented as of this encounter Visit Diagnoses Not on filedocumented in this encounter Care Teams Silverware Buffer Relationship Specialty Start Date End Date Agnes Montgomery MD [address] [place] [address] PCP - General 08/27/23 Agnes Montgomery MD [address] [place] [address] PCP - Insurance Identified PCP 09/05/23 Agnes Montgomery MD [address] [place] [address] PCP - Insurance PCP 08/21/17 Agnes Montgomery MD [address] [place] [address] PCP - Clinical PCP 01/08/17 Jennifer Hill MD [address] [place] [address] HC Brass Cutter 09/20/23 05/06/24 Yesy Rahman MD [address] [place] [address] Consulting Physician Pediatric Cardiology 05/07/24 documented as of this encounter
--- OUTSIDE RECORDS SUMMARY | 2024-08-06 15:00 | XMS_ITS | Encounter Summary ---
Author Organization [facility] Address [address] [place] [phone] Phone Care Team Providers Care Printed Circuit Photographer Name Role Phone Agnes Montgomery MD Primary Care Provider [phone] Reason for Visit * Reason Comments Med Refill Encounter Details Date Type Department Care Team ([facility] st Contact Info) Description 04/08/2020 Refill [facility] [address] [place] [address] Teodora Knight, TEJ [address] [place] [address] Exercise induced bronchospasm Social History Tobacco Use Types Packs/Day Years Used Date Smoking Tobacco: Never Assessed Comments Unknown Sex and Gender Information Value Date Recorded Sex Assigned at Female 11/24/2020 2:45 PM EDT Legal Sex Female 8:34 AM EDT Gender Identity Gender nonconforming/non-binary 07/18/2022 11:30 AM EDT Sexual Orientation Another orientation 4 3:55 PM EDT documented as of this encounter Miscellaneous Notes * Telephone Encounter - Angeline Nolan RN - 04/08/2020 11:04 AM EST Spoke w/mom. Pt just discharged from inpatient program, will be leaving tomorrow for [place] [facility] Asking for refill of levalbuterol to take with her due to history of EIA. Pt is not having any breathing difficulty now, would like to bring to have on hand just in case. Refill sent. documented in this encounter Plan of Treatment Not on file documented as of this encounter Visit Diagnoses Diagnosis Exercise induced bronchospasm documented in this encounter Care Teams Printed Circuit Photographer Relationship Specialty Start Date End Date Agnes Montgomery MD [address] [facility] [address] [place] [address] PCP - General Pediatrics 07/11/17 Nancie Quach [address] [facility]. Flight Software Test Engineer/[facility] 09/03/17 documented as of this encounter
--- OUTSIDE RECORDS SUMMARY | 2024-08-06 15:00 | XMS_ITS | Encounter Summary ---
Author Organization [facility] spital Address [address] [place] [address] Phone Care Team Providers Care Wood And Hardware Outfitter Name Role Phone Agnes Montgomery MD Primary Care Provider Agnes Montgomery MD Unavailable [phone] Agnes Montgomery MD Unavailable [phone] Agnes Montgomery MD Unavailable [phone] Jennifer Hill MD Unavailable [phone] Yesy Rahman MD Unavailable [phone] Encounter Details Date Type Department Care Team (Late st Contact Info) Description 09/26/2023 Orders Only [facility] [address] [place] [phone] Bette Spencer, RN [address] [place] [address] Hyperthyroidism (Primary Dx) Social History Tobacco Use Types [...] Info) Description 08/13/2024 3:00 PM EDT Appointment [facility] [address] [place] [phone] 08/25/2024 5:00 PM EDT Appointment [facility] [address] [place] [phone] Milind Ac MD [address] [place] [address] 09/09/2024 3:00 PM EDT [facility] [address] [place] [phone] Juan Barreto MD [address] [place] [phone] 05/24/2025 8:00 AM EST Telemedicine [facility] 2 [place] [phone] Kanwal Laguerre CNP [address] [place] [phone] documented as of this encounter Results * TSH RECEPTOR AB (TBII) (09/26/2023 2:45 PM EDT) TBII (TSH Receptor Antibody) <1.10 <=1.75 IU/L 10/02/2023 10:09 AM EDT [facility]) Comment: Performed By: [facility] [address] [place] [address] Sales Operations Manager: Dao Pa MD, PhD CLIA Number: [id number] Blood Venous structure / Unknown Venipuncture / Unknown 09/26/2023 2:45 PM EDT 09/26/2023 4:22 PM EDT us Katie Cabrera MD LAB BLOOD ORDERABLES Final Resu lt [employer]) [address] [place] [address] * Triiodothyronine (T3), Total (09/26/2023 2:45 PM EDT) T3, Total 132 80 - 210 ng/dL 09/26/2023 10:26 PM EDT [facility] Blood Venous structure / Unknown Venipuncture / Unknown 09/26/2023 2:45 PM EDT 09/26/2023 4:22 PM EDT us Katie Cabrera MD LAB BLOOD ORDERABLES Final Resu lt Performing Organization Address [facility] Co de Phone Number [facility] [address] [place] [address], * Thyroid Stimulating Immunoglobulin (09/26/2023 2:45 PM EDT) TSI <0.10 <=0.54 IU/L 10/02/2023 12:24 PM EDT [facility] ([facility]) Comment: INTERPRETIVE INFORMATION: Thyroid Stimulating Immunoglobulin ?(TSI) 0.54 IU/L or less.........Consistent with healthy thyroid function or non-Graves thyroid or autoimmune disease. Those with healthy thyroid function typically have results less than 0.1 IU/L. 0.55 IU/L or greater......Consistent with Graves disease (autoimmune hyperthyroidism) This assay specifically detects thyroid stimulating autoantibodies. For diagnostic purposes, the results obtained from this assay should be used in combination with clinical examination, patient medical history, and other findings. Performed By: [facility] [address] [place] [address] Sales Operations Manager: Dao Pa MD, PhD CLIA Number: [id number] Blood Venous structure / Unknown Venipuncture / Unknown 09/26/2023 2:45 PM EDT 09/26/2023 4:22 PM EDT us Katie Cabrera MD LAB BLOOD ORDERABLES Final Resu lt Performing Organization Address City/[facility]/ZIP Co de Phone Number [facility] [address] [place] [address] * Thyroxine (T4), Free (09/26/2023 2:45 PM EDT) Free T4 1.77 0.80 - 1.90 ng/dL 09/26/2023 10:26 PM EDT [facility] Blood Venous structure / Unknown Venipuncture / Unknown 09/26/2023 2:45 PM EDT 09/26/2023 4:22 PM EDT us Katie Cabrera MD LAB BLOOD ORDERABLES Final Resu lt Performing Organization Address City/[facility]/ZIP Co de Phone Number [address] [address], [place] [phone] * (ABNORMAL) Thyroid Stimulating Hormone (09/26/2023 2:45 PM EDT) Thyroid Stimulating Hormone 0.240(L) 0.700 - 5.700 mcunit/mL 09/26/2023 10:26 PM EDT [facility] Blood Venous structure / Unknown Venipuncture / Unknown 09/26/2023 2:45 PM EDT 09/26/2023 4:22 PM EDT us Katie Cabrera MD LAB BLOOD ORDERABLES Final Resu lt Performing Organization Address City/[facility]/ZIP Co de Phone Number [address] [address], [place] [phone] documented in this encounter Visit Diagnoses Diagnosis Hyperthyroidism- Primary Thyrotoxicosis without mention of goiter or other cause, without mention of thyrotoxic crisis or storm documented in this encounter Care Teams Wood And Hardware Outfitter Relationship Specialty Start Date End Date Agnes Montgomery MD [address] [place] [address] PCP - General 08/27/23 Agnes Montgomery MD [address] [place] [address] [address] [place] [address] PCP - Insurance Identified PCP 09/05/23 Agnes Montgomery MD [address] [place], [place] [phone] PCP - Insurance PCP 08/21/17 Agnes Montgomery MD [address] [place], [place] [phone] PCP - Clinical PCP 01/08/17 Jennifer Hill MD [address] [place] [address] HC Promotor [employer] Ticket Sales 09/20/23 05/06/24 Yesy Rahman MD [address] [place] [address] Consulting Physician Pediatric Cardiology 05/07/24 documented as of this encounter
--- OUTSIDE RECORDS SUMMARY | 2024-08-06 15:00 | XMS_ITS | Encounter Summary ---
Author Organization [facility] sp[facility] Address [address] [place] [address] Phone Care Team Providers Care Dcs Engineer Name Role Phone Agnes Montgomery MD Primary Care Provider [phone] Agnes Montgomery MD Unavailable [phone] Agnes Montgomery MD Unavailable [phone] Agnes Montgomery MD Unavailable [phone] Jennifer Hill MD Unavailable + [phone] Yesy Rahman MD Unavailable [phone] Encounter Details Date Type Department Care Team (Latest Contact Info) Description 08/21/2023 Abstract Rekha Conversion Provider, MD Jane [address] [place] [address] Social History Tobacco Use Types Packs/Day Years [...] Info) Description 08/13/2024 3:00 PM EDT Appointment [facility] [address] [place] [phone] 08/25/2024 5:00 PM EDT Appointment [facility] [address] [place] [phone] Milind Ac MD [address] [place] [address] 09/09/2024 3:00 PM EDT Consult [facility] [address] [place] [phone] Juan Barreto MD [address] [place] [address] 05/24/2025 8:00 AM EST Telemedicine [facility] 2 [place] [phone] Kanwal Laguerre CNP [address] [place] [phone] documented as of this encounter Visit Diagnoses Not on filedocumented in this encounter Care Teams Dcs Engineer Relationship Specialty Start Date End Date Agnes Montgomery MD [address] [place] [address] PCP - General 08/27/23 Agnes Montgomery MD [address] [place], [place] [phone] PCP - Insurance Identified PCP 09/05/23 Agnes Montgomery MD [address] [place] [id number] PCP - Insurance PCP 08/21/17 Agnes Montgomery MD [address] [place], [place] [phone] PCP - Clinical PCP 01/08/17 Jennifer Hill MD [address] [place] [address] HC Projection Printer 09/20/23 05/06/24 Yesy Rahman MD [address] [place] [address] Consulting Physician Pediatric Cardiology 05/07/24 documented as of this encounter
--- OUTSIDE RECORDS SUMMARY | 2024-08-06 15:00 | XMS_ITS | Encounter Summary ---
Author Organization [facility] Address [address] [place] [address] Phone Care Team Providers Care Senior Validation Engineer Name Role Phone Agnes Montgomery MD Primary Care Provider [phone] Encounter Details Date Type Department Care Team ([facility] Contact Info) Description 07/10/2024 Results Follow-Up [facility] [address] [place] [address] Rolan Romero MD [address] [place] [address] Social History Tobacco Use Types Packs/Day Years [...] as of this encounter Miscellaneous Notes * Result Encounter Note - Agnes Montgomery MD - 07/16/2024 6:45 PM EDT MyChart messagesent: Ortiz Chirinos for getting the fasting lipids done. The total cholesterol remains high with a slightly improved HDL (good cholesterol) and a slightly worsened non-HDL (bad cholesterol); the triglycerides arenormal. As we have discussed before, I recommend you discuss these levels with your assistant nurse manager. Please let me know if you have any further questions. Kind regards, Agnes Montgomery MD documented in this encounter Plan of Treatment Not on file documented as of this encounter Visit Diagnoses Diagnosis High cholesterol- Primary Pure hypercholesterolemia documented in this encounter Care Teams Senior Validation Engineer Relationship Specialty Start Date End Date Agnes Montgomery MD 57 [facility] [address] [place] [address] PCP - General Pediatrics 07/11/17 Nancie Quach 57 [facility]. Joint Cutter Machine/[facility] 09/03/17 documented as of this encounter
--- OUTSIDE RECORDS SUMMARY | 2024-08-06 15:00 | XMS_ITS | Encounter Summary ---
Author Organization [facility] sp[facility] Address [address] [place] [address] Phone Care Team Providers Care Site Damage Prevention Technician Name Role Phone Agnes Montgomery MD Primary Care Provider Agnes Montgomery MD Unavailable + [phone] Agnes Montgomery MD Unavailable [phone] Agnes Montgomery MD Unavailable + [phone] Jennifer Hill MD Unavailable [phone] Yesy Rahman MD Unavailable [phone] Encounter Details Date Type Department Care Team (Late Contact Info) Description 09/26/2023 Orders Only [facility] [address] [place] [phone] Ruby Kauffman, RN DEPARTMENT OF NURSING [address] [place] [phone] Social History Tobacco Use Types Packs/Day Years [...] Info) Description 08/13/2024 3:00 PM EDT Appointment [facility] [address] [place] [phone] 08/25/2024 5:00 PM EDT Appointment [facility] [address] [place] [phone] Milind Ac MD [address] [place] [address] 09/09/2024 3:00 PM EDT Consult [facility] [address] [place] [phone] Juan Barreto MD [address] [place] [address] 05/24/2025 8:00 AM EST Telemedicine [facility] 2 [place] [phone] Kanwal Laguerre CNP [address] [place] [address] documented as of this encounter Visit Diagnoses Not on filedocumented in this encounter Care Teams Site Damage Prevention Technician Relationship Specialty Start Date End Date Agnes Montgomery MD [address] [place] [address] PCP - General 08/27/23 Agnes Montgomery MD [address] [place] [address] PCP - Insurance Identified PCP 09/05/23 Agnes Montgomery MD [address] [place] [address] PCP - Insurance PCP 08/21/17 Agnes Montgomery MD [address] [place] [address] PCP - Clinical PCP 01/08/17 Jennifer Hill MD [address] [place] [address] HC Sensitizer 09/20/23 05/06/24 Yesy Rahman MD [address] [place] [address] Consulting Physician Pediatric Cardiology 05/07/24 documented as of this encounter
== END 2024-08-06 15:01 | disposition home or self-care (01) ==
PROVIDERS: Emergency Provider Emergency Medicine Emergency Medical Services
DX: Z48.02 Encounter for removal of sutures (principal)
CPT/HCPCS: 99281; 99283